=== PATIENT | male | born 1950 | race Caucasian/White ===

== ENCOUNTER 2017-10-27 00:01 | Day surgery (SDC) | payer MEDICARE ==
[~2017-10-27] VITALS: Ht 172.7 cm; Wt 78.0 kg
[~2017-10-27 00:01] MED LIST: AMLO-99 PO; CHOL500016 PO; ENAL20TA99 PO; FERR-53 PO; GOLYTE PO; HYDR12.561 PO; MAXALT PO; METF-411 PO; OMEP-137 PO; OMEP-153 PO; SIME125T3 PO; TADA5TAB7 PO
[2017-10-27] MEDS: NORMOSOL R SOLN(*) 1000 ML BAG 1,000 ML IV PRN ×2 (06:04→09:02)
[2017-10-27] MEDS ORDERED: GLYCOPYRROLATE 0.2MG/ML 1 ML INJ IVP ONE (06:25)
[2017-10-27 06:27] VITALS: BP 140/90
[2017-10-27] MEDS ORDERED: LIDOCAINE/SOD BICARB 8.4% SYR ID ONE (06:30)
[2017-10-27] MEDS ORDERED: LIDOCAINE MPF 1% 5 ML VIAL ONE (07:13)
[2017-10-27] MEDS ORDERED: PROPOFOL EMUL(*) 10MG/ML 20 ML 60 ML ONE (07:13)
[2017-10-27] MEDS ORDERED: PROPOFOL EMUL(*) 10MG/ML 20 ML 20 ML ONE (08:02)
[2017-10-27 08:06] VITALS: BP 107/68
[2017-10-27] MEDS ORDERED: PANT40TA65 PO (08:16)
[2017-10-27 08:19] VITALS: BP 110/73
--- NOTE | 2017-10-27 08:20 | Short(Outpt) Discharge Summary ---
Discharge Summary Reason for Hosp/Final Diag: (1) Anemia Status: Chronic Hospital Course & Plan: EGD with biopsies and colonoscopy completed without problems. Departure Discharge to: Home, Self Care Discharge Instructions Home Meds Active Scripts Pantoprazole Sodium (PANTOPRAZOLE SODIUM) 40 Mg Tablet.dr, 1 TAB PO DAILY, #60 TAB 3 Refills Take 1 tablet first thing every morning before eating and don't eat for 30 minutes after taking. Prov:RANJANA ZHU MD 10/27/17 Peg/Electrolytes (GOLYTELY SOLUTION) 4,000 Ml Soln, 1 GAL PO ONCE, #1 GAL 0 Refills Prov:RANJANA ZHU MD 10/12/17 Reported Medications Tadalafil (CIALIS) 5 Mg Tablet, 5 MG PO QDAY 10/15/17 Hydrochlorothiazide (HYDROCHLOROTHIAZIDE) 12.5 Mg Tablet, 1 TAB PO QDAY, TAB 10/15/17 Metformin Hcl (METFORMIN HCL) 500 Mg Tablet, 1 TAB PO BID, TAB 10/15/17 Omeprazole (OMEPRAZOLE) 20 Mg Tablet.dr, 20 MG PO BID, TAB 10/15/17 Amlodipine Besylate (AMLODIPINE BESYLATE) 10 Mg Tablet, 1 TAB PO QDAY, TAB 10/15/17 Simethicone (SIMETHICONE) 125 Mg Tab.chew, 125 MG PO QDAY, TAB.CHEW 10/15/17 Cholecalciferol (Vitamin D3) (VITAMIN D3) 5,000 Unit Capsule, 5000 UNIT PO QDAY , CAPSULE 10/15/17 Ferrous Sulfate (FERROUS SULFATE) 325 Mg Tablet, 325 MG PO QDAY 10/15/17 Follow up Referrals: General Surgery - 11/16/17 @ Surgery, General with Ranjana Zhu Md You have a follow up appointment scheduled with Dr. Zhu on 11/16/17, at 11: 30am. Diet: Regular Activity: As Tolerated Special Instructions: Your EGD and colonoscopy was completed without any problems and your prep was excellent (Good Job!!). I small 2 small ulcers in your small intestine just outside of your stomach. Your colon was completely normal. I have provided a prescription for pantoprazole which will help the ulcers to heal. I recommend avoiding NSAIDS (nonsteroidal antiinflamatory medications including ibuprofen, motrin, aleve, advil, aspirin, naprosyn, or naproxen; tylenol/acetaminophen is OK) as these can cause ulcers or make them worse. I will see you back in my office on 11/16/17 an we'll discuss all these results and see what else needs to be done. Problem Qualifiers (1) Anemia: Anemia type: iron deficiency Iron deficiency anemia type: chronic blood loss Qualified Codes: D50.0 - Iron deficiency anemia secondary to blood loss ( chronic) RANJANA ZHU MD October 27, 2017 08:20
[2017-10-27 08:48] VITALS: BP 117/80
[2017-10-27 08:49] VITALS: BP 117/82
== END 2017-10-27 09:30 | disposition home or self-care (01) ==
LOC: OR 00:01
PROVIDERS: ATTEND Surgery
DX: D64.9 Anemia, unspecified (principal); K26.7 Chronic duodenal ulcer without hemorrhage or perforation; E11.9 Type 2 diabetes mellitus without complications
CPT/HCPCS: 00811; 36416; 43239; 45378; 82948; 87077; 88305; 88344; J2001; J2704; J3490

== ENCOUNTER 2018-04-26 13:23 | Inpatient (IN) | payer MEDICARE ==
[~2018-04-26] VITALS: Ht 172.7 cm; Wt 80.7 kg
[~2018-04-26 13:23] MED LIST changes: +AMLO-113 PO; -AMLO-99 PO; -METF-411 PO; +METF-450 PO; +PANT40TA65 PO
--- NOTE | 2018-04-26 13:25 | ER Report ---
History and Physical Time Seen By MD: 13:25 HPI/ROS CHIEF COMPLAINT: Nausea and vomiting HISTORY OF PRESENT ILLNESS: This is a 67-year-old male who presents to the emergency department for nausea and vomiting. Patient states that last night nicholas und 9:00 he woke up with some abdominal discomfort and developed some nausea and vomiting. Patient states he's been vomiting all night, and today as well. Patient did have an appointment with his primary care provider today was seen around 10:00, they thought that it was gastroenteritis, the patient continued to have nausea vomiting and has had ongoing diarrhea for at least a month that is being evaluated by Dr. Norman. Patient states that he decided to come in because the abdominal cramping, nausea and vomiting became too intense. No blood noted in the emesis or diarrhea. Patient does state that when he has his episodes of vomiting he does have some increased shortness of breath. However he declines chest pain. No fevers or chills. No headaches or dizziness. No rashes. No other complaints. REVIEW OF SYSTEMS: Constitutional: No fever, no chills. Eyes: No discharge. ENT: No sore throat. Cardiovascular: No chest pain, no palpitations. Respiratory: As above. Gastrointestinal: As above. Genitourinary: No hematuria. Musculoskeletal: No back pain. Skin: No rashes. Neurological: No headache. Allergies: Coded Allergies: No Known Allergies (Verified Allergy, Mild, 02/14/08) Home Meds Reported Medications Tadalafil (CIALIS) 5 Mg Tablet, 5 MG PO QDAY 10/15/17 Hydrochlorothiazide (HYDROCHLOROTHIAZIDE) 12.5 Mg Tablet, 1 TAB PO QDAY, TAB 10/15/17 Metformin Hcl (METFORMIN HCL) 500 Mg Tablet, 1 TAB PO BID, TAB 10/15/17 Omeprazole (OMEPRAZOLE) 20 Mg Tablet.dr, 20 MG PO BID, TAB 10/15/17 Amlodipine Besylate (AMLODIPINE BESYLATE) 10 Mg Tablet, 1 TAB PO QDAY, TAB 10/15/17 Cholecalciferol (Vitamin D3) (VITAMIN D3) 5,000 Unit Capsule, 5000 UNIT PO QDAY, CAPSULE 10/15/17 Ferrous Sulfate (FERROUS SULFATE) 325 Mg Tablet, 325 MG PO QDAY 10/15/17 Discontinued Reported Medications Simethicone (SIMETHICONE) 125 Mg Tab.chew, 125 MG PO QDAY, TAB.CHEW 10/15/17 Discontinued Scripts Pantoprazole Sodium (PANTOPRAZOLE SODIUM) 40 Mg Tablet.dr, 1 TAB PO DAILY, #60 TAB 3 Refills Take 1 tablet first thing every morning before eating and don't eat for 30 minutes after taking. Prov:RANJANA ZHU MD 10/27/17 Hx Smoking: Yes (PIPE RARELY) Smoking Status: Never Smoker Hx Alcohol Use: Yes Constitutional Vital Sign - Last 24 Hours 04/26/18 04/26/18 04/26/18 04/26/18 13:34 13:34 13:38 13:53 Pulse 110 114 105 Resp 20 8 8 B/P (MAP) 149/100 (116) 149/100 Pulse Ox 97 97 94 04/26/18 04/26/18 04/26/18 04/26/18 14:00 14:08 14:23 14:25 Pulse 102 ??? Resp 12 B/P (MAP) 140/97 (111) Pulse Ox 88 O2 Flow Rate 2.0 04/26/18 04/26/18 04/26/18 04/26/18 14:30 14:38 14:53 15:00 Pulse 99 91 Resp 18 7 B/P (MAP) 140/97 (111) 140/90 (107) Pulse Ox 87 99 04/26/18 04/26/18 04/26/18 04/26/18 15:08 15:13 15:37 15:42 Pulse 97 95 101 Resp 12 17 B/P (MAP) 142/90 (107) Pulse Ox 91 04/26/18 04/26/18 04/26/18 04/26/18 15:57 16:00 16:12 16:27 Pulse 98 96 100 B/P (MAP) 132/89 (103) Pulse Ox 95 95 95 O2 Delivery Nasal Cannula O2 Flow Rate 2 Physical Exam General Appearance: The patient is alert, has no immediate need for airway protection and no signs of toxicity. Eyes: Pupils equal and round no pallor or injection. ENT, Mouth: Mucous membranes are moist. Respiratory: There are no retractions, lungs are clear to auscultation. Cardiovascular: Regular rate and rhythm, no murmurs, clicks or rubs. Gastrointestinal: Abdomen is round, soft and non tender, no masses, hypoactive and distant bowel sounds. Neurological: Alert and oriented 4. Moving all extremities. Following all commands. No focal neuro deficits. Skin: Warm and dry, no rashes. Musculoskeletal: Neck is supple non tender. Extremities are nontender, nonswollen and have full range of motion. DIFFERENTIAL DIAGNOSIS: After history and physical exam differential diagnosis was considered for abdominal pain including but not limited to appendicitis, bowel obstruction, cholecystitis, gastritis and urinary tract infection. Medical Decision Making Data Points Result Diagram: 04/26/18 1346 04/26/18 1346 Laboratory Hematology Test 04/26/18 13:46 Red Blood Count 5.74 M/uL (4.00-5.60) Mean Corpuscular Volume 87.7 fL (80.0-96.0) Mean Corpuscular Hemoglobin 30.6 pg (26.0-33.0) Mean Corpuscular Hemoglobin Concent 34.9 g/dL (32.0-36.0) Red Cell Distribution Width 14.0 % (11.5-14.5) Mean Platelet Volume 6.9 fL (7.2-11.1) Neutrophils (%) (Auto) 83.5 % (39.4-72.5) Lymphocytes (%) (Auto) 7.4 % (17.6-49.6) Monocytes (%) (Auto) 8.3 % (4.1-12.4) Eosinophils (%) (Auto) 0.2 % (0.4-6.7) Basophils (%) (Auto) 0.6 % (0.3-1.4) Nucleated RBC Relative Count (auto) 0.0 /100WBC Neutrophils # (Auto) 8.5 K/uL (2.0-7.4) Lymphocytes # (Auto) 0.7 K/uL (1.3-3.6) Monocytes # (Auto) 0.8 K/uL (0.3-1.0) Eosinophils # (Auto) 0.0 K/uL (0.0-0.5) Basophils # (Auto) 0.1 K/uL (0.0-0.1) Nucleated RBC Absolute Count (auto) 0.00 K/uL Erythrocyte Sedimentation Rate 11 mm/HOUR (0-20) Absolute Reticulocyte Count 0.1058 10^6/uL Percent Reticulocyte Count 1.83 % Corrected Reticulocyte % 2.21 % Sodium Level 139 mmol/L (137-145) Potassium Level 3.8 mmol/L (3.5-5.0) Chloride Level 103 mmol/L (98-107) Carbon Dioxide Level 24 mmol/L (22-30) Blood Urea Nitrogen 16 mg/dl (9-21) Creatinine 0.90 mg/dl (0.66-1.25) Glomerular Filtration Rate Calc > 60.0 Random Glucose 136 mg/dl (75-110) Calcium Level 9.8 mg/dl (8.4-10.2) Iron Level 51 ug/dl (49-181) Total Iron Binding Capacity 402 ug/dl (261-497) Percent Iron Saturation 12.7 % Total Bilirubin 1.0 mg/dl (0.2-1.3) Aspartate Amino Transf (AST/SGOT) 24 U/L (0-35) Alanine Aminotransferase (ALT/SGPT) 33 U/L (0-56) Alkaline Phosphatase 107 U/L (0-126) Lactate Dehydrogenase 508 U/L (0-674) Troponin I < 0.012 ng/ml C-Reactive Protein 3.0 mg/dl (<1.0) Total Protein 7.7 g/dl (6.3-8.2) Albumin 4.3 g/dl (3.5-5.0) Lipase 70 U/L (23-300) Chemistry Test 04/26/18 13:46 White Blood Count 10.1 k/uL (4.5-11.0) Red Blood Count 5.74 M/uL (4.00-5.60) Hemoglobin 17.6 g/dL (14.0-18.0) Hematocrit 50.8 % (42.0-52.0) Mean Corpuscular Volume 87.7 fL (80.0-96.0) Mean Corpuscular Hemoglobin 30.6 pg (26.0-33.0) Mean Corpuscular Hemoglobin Concent 34.9 g/dL (32.0-36.0) Red Cell Distribution Width 14.0 % (11.5-14.5) Platelet Count 314 K/uL (150-450) Mean Platelet Volume 6.9 fL (7.2-11.1) Neutrophils (%) (Auto) 83.5 % (39.4-72.5) Lymphocytes (%) (Auto) 7.4 % (17.6-49.6) Monocytes (%) (Auto) 8.3 % (4.1-12.4) Eosinophils (%) (Auto) 0.2 % (0.4-6.7) Basophils (%) (Auto) 0.6 % (0.3-1.4) Nucleated RBC Relative Count (auto) 0.0 /100WBC Neutrophils # (Auto) 8.5 K/uL (2.0-7.4) Lymphocytes # (Auto) 0.7 K/uL (1.3-3.6) Monocytes # (Auto) 0.8 K/uL (0.3-1.0) Eosinophils # (Auto) 0.0 K/uL (0.0-0.5) Basophils # (Auto) 0.1 K/uL (0.0-0.1) Nucleated RBC Absolute Count (auto) 0.00 K/uL Erythrocyte Sedimentation Rate 11 mm/HOUR (0-20) Absolute Reticulocyte Count 0.1058 10^6/uL Percent Reticulocyte Count 1.83 % Corrected Reticulocyte % 2.21 % Glomerular Filtration Rate Calc > 60.0 Calcium Level 9.8 mg/dl (8.4-10.2) Iron Level 51 ug/dl (49-181) Total Iron Binding Capacity 402 ug/dl (261-497) Percent Iron Saturation 12.7 % Total Bilirubin 1.0 mg/dl (0.2-1.3) Aspartate Amino Transf (AST/SGOT) 24 U/L (0-35) Alanine Aminotransferase (ALT/SGPT) 33 U/L (0-56) Alkaline Phosphatase 107 U/L (0-126) Lactate Dehydrogenase 508 U/L (0-674) Troponin I < 0.012 ng/ml C-Reactive Protein 3.0 mg/dl (<1.0) Total Protein 7.7 g/dl (6.3-8.2) Albumin 4.3 g/dl (3.5-5.0) Lipase 70 U/L (23-300) EKG/Imaging EKG Interpretation 12 lead EKG: Time of EKG 1358. Rhythm: Sinus tachycardia, ventricular rate 101 bpm. [place]: normal QRS: Incomplete right bundle branch block. ST segments: No ST depression or elevation identified. No Previous EKGs for comparison. Imaging TECHNIQUE: CT abdomen and pelvis with intravenous contrast. Contiguous axial images of the abdomen and pelvis was performed from the lung bases to the symphysis pubis. One of the following dose optimization techniques was utilized in the performance of this exam: Automated exposure control; adjustment of the mA and/or kV according to the patient's size; or use of an iterative reconstruction technique. Specific details can be referenced in the facility's radiology CT exam operational policy. CONTRAST: 75 cc of Isovue-370 COMPARISON: None. FINDINGS: Visualized lung bases: Negative. Hepatobiliary: There is fatty infiltration of the liver. 4 mm hypodensity segment 4A is likely a benign cyst. Small gallstone is noted in the gallbladder. Spleen: Negative. Adrenals: Negative. Kidneys/: Negative. Pancreas: Negative. GI: There is a small bowel obstruction with small bowel loops dilated and fluid-filled measuring up to 3.8 cm. Transition point appears to be in the terminal ileum with some skip areas of focal narrowing enhancement concerning for possible Crohn's disease. Malignancy is not excluded but felt to be unlikely. There is a small amount of free fluid. Subtly prominent mesenteric lymph nodes are likely reactive. Appendix is normal. Remainder of the colon is unremarkable. No evidence for perianal disease. Vessels/spaces/nodes: Atherosclerotic calcifications noted. Iliac vessels are ectatic. Bones/soft tissues: Degenerative changes are noted the spine. IMPRESSION: 1. Distal small bowel obstruction at the level the terminal ileum. There are skip areas of small bowel narrowing, thickening and enhancement of the terminal ileum concerning for possible Crohn's disease. Malignancy is felt to be unlikely and the pattern is atypical for adhesions. Small amount of free fluid is noted but no gross free air. Report Dictated By: Joo Ferrera MD at 04/26/2018 3:45 PM Report E-Signed By: Joo Ferrera MD at 04/26/2018 3:58 PM [id number] Exam type: ACUTE ABDOMEN SERIES 3 VIEW History: abd pain, n/v/d Comparison: None. Findings: Supine and upright views of the abdomen demonstrate air-fluid levels in multiple loops of mildly prominent small bowel throughout the abdomen. The colon does not appear dilated. Findings are concerning for small bowel obstruction. No free air seen beneath hemidiaphragms. No gross evidence of organomegaly. PA of the chest reveals no evidence of acute pulmonary consolidation or pleural effusions. The cardiac silhouette is normal in size. This mild ectasia the thoracic aorta. IMPRESSION: 1. Findings are suspicious for small bowel obstruction Report Dictated By: Cailin Mitchell MD at 04/26/2018 2:43 PM Report E-Signed By: Cailin Mitchell MD at 04/26/2018 2:45 PM WSN:[email or web address] ED Course/Re-evaluation Clinical Indication for ER IV: Hydration, IV Access ED Course The patient was admitted to room. A history and physical were obtained. Differential diagnoses were considered. IV was started. A CBC, CMP, troponin were obtained. A 1 L normal saline bolus was given, 4 mg IV Zofran. EKG showing sinus rhythm with a incomplete right bundle branch block. A three-view abdominal x-ray concerning for a bowel obstruction. I did review the results with the patient, did recommend a CT, patient was in agreement. A CT of the abdomen and pelvis showing a small bowel obstruction near the terminal ileum. The patient's laboratory studies unremarkable, negative troponin, negative urine. I did speak with Dr. Zhu, the surgeon on-call, he's accepted the patient into his services, patient will be admitted to the medical floor. No NG tube at this time. 04/26/2018 4:17:37 pm I did speak with Dr. Zhu, the surgeon combination welder apprentice, he's accepted the patient into his services, patient will be admitted to medical floor, no NG tube at this time. Decision to Disposition Date: Apr 26, 2018 Decision to Disposition Time: 16:17 Depart Departure Latest Vital Signs Vital Signs Date Time Temp Pulse Resp B/P (MAP) Pulse Ox O2 Delivery O2 Flow Rate FiO2 04/26/18 16:27 100 95 Nasal Cannula 2 04/26/18 16:00 132/89 (103) 04/26/18 15:13 17 Impression: Primary Impression: SBO (small bowel obstruction) Condition: Improved Disposition: Admitted from ER Referrals: ENRIQUE PATEL PA-C (PCP) JOSE ANGEL HUI COMMUNICATIONS DESIGNER-BC Apr 26, 2018 13:25
[2018-04-26] MEDS ORDERED: NS(*) 0.9% 1000 ML BAG 1,000 ML IV ONE (13:53)
[2018-04-26] MEDS ORDERED: ONDANSETRON 4 MG/2 ML VIAL IVP ONE (13:55)
[2018-04-26 13:59] LABS: PLATELET COUNT, AUTOMATED 314 K/uL (150-450)
--- NOTE | 2018-04-26 14:03 | EKG ---
FACILITY: [facility] - [place] PATIENT NAME: SHAINA NI : [id number] MR: [id number] V: [id number] EXAM DATE: ORDERING PHYSICIAN: JOSE ANGEL HUI TECHNOLOGIST: IRENE Marquez Reason : SOB Blood Pressure : / mmHG Vent. Rate : 101 BPM Atrial Rate : 101 BPM P-R Int : 152 ms QRS Dur : 100 ms QT Int : 356 ms P-R-T Axes : 042 -60 050 degrees QTc Int : [address] elevation in inferior leads consistent with myocardial injury R wave progression consistent with old ant/sep VT No previous ECGs available Confirmed by PRIYANKA SHARMA ([id number]) on 04/26/2018 6:13:19 PM Referred By: Confirmed By:PRIYANKA SHARMA
--- NOTE | 2018-04-26 14:48 | RADIOLOGY IMAGING REPORT ---
FACILITY: [facility] PATIENT NAME: Adrian Morales : 1950 MR: [id number] V: [id number] EXAM DATE: ORDERING PHYSICIAN: JOSE ANGEL HUI TECHNOLOGIST: Location: [facility] - [place] Patient: Adrian Morales : 1950 Visit/Account:[id number] Date of Sevice: 04/26/2018 Exam type: ACUTE ABDOMEN SERIES 3 VIEW History: abd pain, n/v/d Comparison: None. Findings: Supine and upright views of the abdomen demonstrate air-fluid levels in multiple loops of mildly prom inent small bowel throughout the abdomen. The colon does not appear dilated. Findings are concernin g for small bowel obstruction. No free air seen beneath hemidiaphragms. No gross evidence of organo megaly. PA of the chest reveals no evidence of acute pulmonary consolidation or pleural effusions. The cardi ac silhouette is normal in size. This mild ectasia the thoracic aorta. IMPRESSION: 1. Findings are suspicious for small bowel obstruction Report Dictated By: Cailin Mitchell MD at 04/26/2018 2:43 PM Report E-Signed By: Cailin Mitchell MD at 04/26/2018 2:45 PM WSN:[email or web address]
[2018-04-26] MEDS ORDERED: IOPAMIDOL 76% 75 ML INFUS BTL 75 ML ONE (15:24)
--- NOTE | 2018-04-26 16:02 | RADIOLOGY IMAGING REPORT ---
FACILITY: [facility] - [place] PATIENT NAME: Adrian Morales : 1950 MR: [id number] V: [id number] EXAM DATE: ORDERING PHYSICIAN: JOSE ANGEL HUI TECHNOLOGIST: Location: [facility] [place] Patient: Adrian Morales : 1950 Visit/Account:[id number] Date of Sevice: 04/26/2018 ABDOMEN/PELVIS WITH CONTRAST HISTORY:n/v, eval for SBO TECHNIQUE: CT abdomen and pelvis with intravenous contrast. Contiguous axial images of the abdomen and pelvis was performed from the lung bases to the symphysis pubis. One of the following dose optimization techniques was utilized in the performance of this exam: Autom ated exposure control; adjustment of the mA and/or kV according to the patient's size; or use of an i terative reconstruction technique. Specific details can be referenced in the facility's radiology C T exam operational policy. CONTRAST: 75 cc of Isovue-370 COMPARISON: None. FINDINGS: Visualized lung bases: Negative. Hepatobiliary: There is fatty infiltration of the liver. 4 mm hypodensity segment 4A is likely a be nign cyst. Small gallstone is noted in the gallbladder. Spleen: Negative. Adrenals: Negative. Kidneys/: Negative. Pancreas: Negative. GI: There is a small bowel obstruction with small bowel loops dilated and fluid-filled measuring up to 3.8 cm. Transition point appears to be in the terminal ileum with some skip areas of focal narrow ing enhancement concerning for possible Crohn's disease. Malignancy is not excluded but felt to be u nlikely. There is a small amount of free fluid. Subtly prominent mesenteric lymph nodes are likely reactive. Appendix is normal. Remainder of the colon is unremarkable. No evidence for perianal disease. Vessels/spaces/nodes: Atherosclerotic calcifications noted. Iliac vessels are ectatic. Bones/soft tissues: Degenerative changes are noted the spine. IMPRESSION: 1. Distal small bowel obstruction at the level the terminal ileum. There are skip areas of small diallo wel narrowing, thickening and enhancement of the terminal ileum concerning for possible Crohn's disea se. Malignancy is felt to be unlikely and the pattern is atypical for adhesions. Small amount of fr ee fluid is noted but no gross free air. Report Dictated By: Joo Ferrera MD at 04/26/2018 3:45 PM Report E-Signed By: Joo Ferrera MD at 04/26/2018 3:58 PM [id number]
[2018-04-26] MEDS ORDERED: FLUSH 10 ML SYR IVP PRN (16:20)
[2018-04-26] MEDS ORDERED: INSULIN HUM LISPRO 100 UN/ML 3 ML VIAL SUBQ PRN (16:20)
[2018-04-26] MEDS ORDERED: MORPHINE 2 MG/ML SYR IVP PRN (16:20)
[2018-04-26] MEDS ORDERED: ONDANSETRON 4 MG/2 ML VIAL IVP PRN (16:20)
[2018-04-26 17:21] VITALS: BP 147/96
[2018-04-26] MEDS: HYDROCORTISONE 100 MG/2 ML IVP SCH (17:22)
--- NOTE | 2018-04-26 19:39 | Gen Surgery History & Physical ---
History of Present Illness Chief Complaint N/V History of Present Illness 67yo male, known to me as I have been evaluating him for chronic abdominal cramps and diarrhea. EGD revealed some superficial duodenal ulcers and his colonoscopy was normal. I saw him in f/u last week and we discussed trying a trial of a gluten free diet for 30 days. Yesterday, he was eating dinner and shortly afterward started feeling poorly with N/V. His symptoms have worsened today prompting him to come in to the [facility] ER where a CT abdomen/pelvis reveals an SBO due to enteritis with skip lesions suspicious for Crohn's. I was asked to evaluate and treat this patient. He has never before been diagnosed with IBD, no previous h/o SBOs, no previous abdominal surgery. He has continued to pass flatus and liquid stool although he did take an immodium yesterday and had a "normal" formed BM this morning. No blood in his stool. Right now, at the time of my examination, he is asymptomatic without any abdominal pain or bloating and no N/V. History Problems: (1) Hypertension Status: Chronic (2) GERD (gastroesophageal reflux disease) Status: Chronic (3) Diabetes type 2, controlled Status: Chronic Home Meds Reported Medications Tadalafil (CIALIS) 5 Mg Tablet, 5 MG PO QDAY 10/15/17 Hydrochlorothiazide (HYDROCHLOROTHIAZIDE) 12.5 Mg Tablet, 1 TAB PO QDAY, TAB 10/15/17 Metformin Hcl (METFORMIN HCL) 500 Mg Tablet, 1 TAB PO BID, TAB 10/15/17 Omeprazole (OMEPRAZOLE) 20 Mg Tablet.dr, 20 MG PO BID, TAB 10/15/17 Amlodipine Besylate (AMLODIPINE BESYLATE) 10 Mg Tablet, 1 TAB PO QDAY, TAB 10/15/17 Cholecalciferol (Vitamin D3) (VITAMIN D3) 5,000 Unit Capsule, 5000 UNIT PO QDAY, CAPSULE 10/15/17 Ferrous Sulfate (FERROUS SULFATE) 325 Mg Tablet, 325 MG PO QDAY 10/15/17 Discontinued Reported Medications Simethicone (SIMETHICONE) 125 Mg Tab.chew, 125 MG PO QDAY, TAB.CHEW 10/15/17 Discontinued Scripts Pantoprazole Sodium (PANTOPRAZOLE SODIUM) 40 Mg Tablet.dr, 1 TAB PO DAILY, #60 TAB 3 Refills Take 1 tablet first thing every morning before eating and don't eat for 30 minutes after taking. Prov:RANJANA ZHU MD 10/27/17 Allergies: Coded Allergies: No Known Allergies (Verified Allergy, Mild, 02/14/08) Review of Systems All Systems Reviewed/Normal: Yes, Except as Noted Gastrointestinal: Nausea, Vomiting, Diarrhea, Abdominal Pain Exam General Appearance: Alert, Awake, No Acute Distress, Afebrile Neuro: No Gross deficits Eyes: PERRLA GI: Abd Soft and Non-Tender Extremities: Warm, Perfused Psych: Alert & Oriented X3, Appropriate Mood & Affect Medical Decision Making Data Points Result Diagram: 04/26/18 1346 04/26/18 1346 Assessment and Plan Problems: (1) SBO (small bowel obstruction) Status: Acute Assessment & Plan: 04/26/18: Admit, bowel rest/NPO, IV fluids. Will send stool for infectious disease w/u given enteritis and diarrhea. Will start IV steroids for suspected Crohn's based on enteritis with skip lesions. I have explained the CT findings with the patient as well as the suspected diagnoses and recommended treatment. He indicates his understanding of this discussion and his questions have been answered. Pt is agreeable with proceeding with this plan. (2) Enteritis Status: Acute Condition Stable. Time Spent: < 30 min Venous Thromboembolism VTE Risk Physician Assess for VTE Risk: Yes Patient's VTE Risk: Low VTE Diagnostic Test 2 Days Prior to Admit: No Antithrombotics Is Pt On Any Antithrombotics?: No RANJANA ZHU MD Apr 26, 2018 19:39
[2018-04-26 19:50] VITALS: BP 103/88
[2018-04-27 00:10] VITALS: BP 136/86
[2018-04-27] MEDS: HYDROCORTISONE 100 MG/2 ML IVP SCH ×3 (00:43→16:52)
[2018-04-27] MEDS: NS(*) 0.9% 1000 ML BAG 1,000 ML IV PRN ×3 (00:44→18:23)
[2018-04-27 05:30] VITALS: BP 132/80
[2018-04-27 06:12] LABS: PLATELET COUNT, AUTOMATED 252 K/uL (150-450)
--- NOTE | 2018-04-27 06:17 | RADIOLOGY IMAGING REPORT ---
FACILITY: [facility] - [place] PATIENT NAME: Adrian Morales : 1950 MR: [id number] V: [id number] EXAM DATE: ORDERING PHYSICIAN: RANJANA ZHU TECHNOLOGIST: Location: [facility] Patient: Adrian Morales : 1950 Visit/Account:[id number] Date of Sevice: 04/27/2018 KUB SINGLE VIEW ABDOMEN HISTORY: Small bowel obstruction. COMPARISON: CT abdomen and pelvis dated 04/26/2018. FINDINGS: Lines/tubes: None. Bowel gas pattern: Dilated small bowel loops in the right side of the abdomen measuring up to 3.9 cm . This is probably not significantly changed compared with the recent CT scan. Soft tissues: Contrast in the bladder from recent CT scan. Bony structures: Negative. Visualized lung bases: Negative. IMPRESSION: Dilated small bowel loops in the right side of the abdomen measuring up to 3.9 cm. This i s probably not significantly changed compared with the recent CT scan. Report Dictated By: Johnny Cortez MD at 04/27/2018 6:09 AM Report E-Signed By: Johnny Cortez MD at 04/27/2018 6:14 AM [id number]
--- NOTE | 2018-04-27 06:43 | General Surgery Progress Note ---
Subjective Progress Notes Subjective Feeling much better today. No N/V, no abdominal pain. No flatus but had a BM this morning. Physical Exam Vital Signs Date Time Temp Pulse Resp B/P (MAP) Pulse Ox O2 Delivery O2 Flow Rate FiO2 04/27/18 05:30 97.8 83 16 132/80 (97) 92 Room Air 04/27/18 00:10 1.0 Intake and Output 04/27/18 07:00 Intake Total 1000 ml Balance 1000 ml Intake IV Total 1000 ml # Voids 2 # Bowel Movements 1 General Appearance: Alert, Awake, No Acute Distress, Afebrile GI: Soft and Non-Tender (Much softer than yesterday.) Extremities: Warm, Perfused Result Diagram: 04/27/1852 04/27/1852 Assessment and Plan Problems: (1) SBO (small bowel obstruction) Status: Acute Assessment & Plan: 04/26/18: Admit, bowel rest/NPO, IV fluids. Will send stool for infectious disease w/u given enteritis and diarrhea. Will start IV steroids for suspected Crohn's based on enteritis with skip lesions. I have explained the CT findings with the patient as well as the suspected diagnoses and recommended treatment. He indicates his understanding of this discussion and his questions have been answered. Pt is agreeable with proceeding with this plan. 04/27/18: Doing well. No flatus yet and KUB with SBO. Continue IV steroids. Will start sips/chips today. Continue IV fluids. (2) Enteritis Status: Acute Condition Stable. Time Spent: < 30 min Exam Sepsis Risk: No Definite Risk RANJANA ZHU MD Apr 27, 2018 06:43
[2018-04-27 06:48] VITALS: BP 128/82
[2018-04-27] MEDS: amLODIPine BESYL(*) 5 MG TAB PO SCH (08:47)
[2018-04-27] MEDS: HYDROCHLOROTHIAZIDE 25 MG TAB PO SCH (08:47)
[2018-04-27] MEDS: PANTOPRAZOLE SOD 40 MG IV VIAL IVP SCH (08:48)
[2018-04-27] MEDS: ENOXAPARIN 40 MG/0.4ML SYR SC SCH (08:50)
[2018-04-27 11:28] VITALS: BP 133/85
--- NOTE | 2018-04-27 12:50 | Medical Nutrition Therapy ---
Nutrition Anthropometrics Height (Inches): 68 Weight (Pounds): 178 Weight (Calculated Kilograms): 80.739 BMI: 27.1 Vasiliy Nutrition Score: Adequate Vasiliy Nutrition Risk Score: 19 Dietary Referral Nutrition Risk Factors: Nutrition Risk Comment: Physical Findings Physical Appearance: Overweight BMI 25-29 Skin Appearance Skin Appearance: Edema Edema Location Modifier: Edema Location: Type of Edema: Degree of Edema: Gastrointestinal Symptoms GI Symtoms: Appetite Changes, Change in Bowel Pattern Tube Present: Bowel Sounds: Recent Bowel Pattern: Stool Characteristics: Nutritional Diagnosis Nutritional Risk Acuity 1: GI Obstruction Past Medical History: Hx of HTN, GERD, T2DM Nutritional Acuity: 1-High Nutrition Diagnosis: Altered GI Function Nutrition Etiology: Physiological Causes Nutrition Problem/Etiology/Sym: Altered GI funtion r/t physiological causes AEB distended stomach, no flatus. Energy Requirement: 2030 (M-SJ * 1.3) Protein Requirement: 80 (1g/kg) Fluid Requirement: 2030 (1ml/kg) Diet Type: NPO/Ice Chips Only Nutrition Intervention: Incr diet as tolerated, Check glucose, Obtain Height and Weight Drug: Diuretics Nutrition Monitoring & Eval Nutrition Goals: Eat 75-100% Meal, Drink > 1500 cc/day RD Patient Assessment Time: [address] Assessment Type: RD Assessment Patient Nutrition Acuity: 1-High Follow Up Date: Apr 29, 2018 Nutritional Comment: 04/27 Pt admitted for SBO. Pt NPO/Ice chips only. Hx of HTN, GERD, T2DM. Pt has distended stomach, but denies any n/v, abd pain. Pt has no flatus, but did have BM this am. C-Reactive protein elevated at 3.6. TB CHATO LOZOYA Apr 27, 2018 08:06
[2018-04-27 15:19] VITALS: BP 126/74
[2018-04-27] MEDS ORDERED: NS(*) 0.9% 1000 ML BAG 1,000 ML IV PRN (19:39)
[2018-04-27 20:01] VITALS: BP 135/83
[2018-04-28 00:39] VITALS: BP 121/79
[2018-04-28] MEDS: HYDROCORTISONE 100 MG/2 ML IVP SCH ×3 (00:42→18:23)
[2018-04-28 03:06] VITALS: BP 128/79
[2018-04-28 05:59] LABS: PLATELET COUNT, AUTOMATED 246 K/uL (150-450)
--- NOTE | 2018-04-28 06:25 | RADIOLOGY IMAGING REPORT ---
[place] [facility] [place] Adrian Morales : 1950 MR: [id number] V: [id number] EXAM DATE: ORDERING PHYSICIAN: RANJANA ZHU TECHNOLOGIST: Location: [facility] [place] Patient: Adrian Morales : 1950 Visit/Account:[id number] Date of Sevice: 04/28/2018 KUB SINGLE VIEW ABDOMEN HISTORY: Small bowel obstruction. Follow-up. COMPARISON: 04/27/2018 and 04/26/2018. FINDINGS: A single AP supine view of the abdomen was obtained. Distribution of bowel gas is normal with bowel in all four quadrants as well as centrally. There are dilated small bowel loops in the lower abdomen, right greater than left. No significant change from p rior study. No free air. There is mild degenerative change of the spine. There is mild right hemidiaphragm elevation. IMPRESSION: 1. Persistent small bowel obstruction without significant interval change. Report Dictated By: Tawana Fernandez at 04/28/2018 6:19 AM Report E-Signed By: Tawana Fernandez at 04/28/2018 6:20 AM WSN:[id number]
[2018-04-28 07:34] VITALS: BP 128/79
[2018-04-28 08:21] VITALS: BP 132/79
--- NOTE | 2018-04-28 08:37 | General Surgery Progress Note ---
Subjective Progress Notes Subjective No complaints this morning. No pain. Passing flatus. No BM since yesterday. No N/V, doesn't feel bloated. Physical Exam Vital Signs Date Time Temp Pulse Resp B/P (MAP) Pulse Ox O2 Delivery O2 Flow Rate FiO2 04/28/18 08:21 98.1 71 16 132/79 (96) 92 Room Air 04/27/18 07:12 1.0 Intake and Output 04/28/18 06:59 Intake Total 3880 ml Balance 3880 ml Intake Oral 940 ml IV Total 2940 ml # Voids 6 General Appearance: Alert, Awake, No Acute Distress, Afebrile GI: Soft and Non-Tender Extremities: Warm, Perfused Result Diagram: 04/28/1852604/28/18526 Assessment and Plan Problems: (1) SBO (small bowel obstruction) Status: Acute Assessment & Plan: 04/26/18: Admit, bowel rest/NPO, IV fluids. Will send stool for infectious disease w/u given enteritis and diarrhea. Will start IV steroids for suspected Crohn's based on enteritis with skip lesions. I have explained the CT findings with the patient as well as the suspected diagnoses and recommended treatment. He indicates his understanding of this discussion and his questions have been answered. Pt is agreeable with proceeding with this plan. 04/27/18: Doing well. No flatus yet and KUB with SBO. Continue IV steroids. Will start sips/chips today. Continue IV fluids. 04/28/18: Doing well this morning. Passing flatus since yesterday evening. KUB still with signs of SBO. CRP down this morning. Continue clear diet and continue IV steroids for now. Will reassess this afternoon and if he continues to progress then will consider regular diet later today. (2) Enteritis Status: Acute Condition STable. Time Spent: < 30 min Exam Sepsis Risk: No Definite Risk RANJANA ZHU MD Apr 28, 2018 08:37
[2018-04-28] MEDS: HYDROCHLOROTHIAZIDE 25 MG TAB PO SCH (09:08)
[2018-04-28] MEDS: amLODIPine BESYL(*) 5 MG TAB PO SCH (09:08)
[2018-04-28] MEDS: PANTOPRAZOLE SOD 40 MG IV VIAL IVP SCH (09:09)
[2018-04-28] MEDS: ENOXAPARIN 40 MG/0.4ML SYR SC SCH (09:09)
[2018-04-28 15:42] VITALS: BP 134/91
[2018-04-28 19:35] VITALS: BP 130/85
[2018-04-29 00:21] VITALS: BP 123/79
[2018-04-29] MEDS: HYDROCORTISONE 100 MG/2 ML IVP SCH ×3 (00:31→17:17)
[2018-04-29 05:51] VITALS: BP 136/90
[2018-04-29 06:01] LABS: PLATELET COUNT, AUTOMATED 236 K/uL (150-450)
--- NOTE | 2018-04-29 08:19 | RADIOLOGY IMAGING REPORT ---
FACILITY: [facility] - [place] PATIENT NAME: Adrian Morales : 1950 MR: [id number] V: [id number] EXAM DATE: ORDERING PHYSICIAN: RANJANA ZHU TECHNOLOGIST: [place] [facility] [place] Patient: Adrian Morales : 1950 Visit/Account:[id number] Date of Sevice: 04/29/2018 Single view of the abdomen Indication: Small bowel obstruction. Comparison: April 28, 2018. Findings: Borderline dilated loops of small bowel, grossly unchanged. There are no pathologic calcifications identified. Calcified phleboliths within the pelvis. IMPRESSION: No significant change since prior exam. Report Dictated By: Parmjit Hannon MD at 04/29/2018 8:13 AM Report E-Signed By: Parmjit Hannon MD at 04/29/2018 8:15 AM WSN:[id number]
[2018-04-29 08:43] VITALS: BP 141/81
[2018-04-29] MEDS ORDERED: POTASSIUM CHL PWDR 20 MEQ PKT PO ONE (09:30)
[2018-04-29] MEDS ORDERED: PRE5 PO (09:53)
[2018-04-29] MEDS ORDERED: PRED20TA6 PO (09:53)
[2018-04-29] MEDS: HYDROCHLOROTHIAZIDE 25 MG TAB PO SCH (11:19)
[2018-04-29] MEDS: amLODIPine BESYL(*) 5 MG TAB PO SCH (11:19)
[2018-04-29] MEDS: PANTOPRAZOLE SOD 40 MG IV VIAL IVP SCH (11:20)
[2018-04-29] MEDS: ENOXAPARIN 40 MG/0.4ML SYR SC SCH (11:20)
--- NOTE | 2018-04-29 14:03 | Medical Nutrition Therapy ---
Nutrition Anthropometrics Height (Inches): 68 Weight (Pounds): 178 Weight (Calculated Kilograms): 80.739 BMI: 27.1 Vasiliy Nutrition Score: Adequate Vasiliy Nutrition Risk Score: 20 Dietary Referral Nutrition Risk Factors: Nutrition Risk Comment: Physical Findings Physical Appearance: Overweight BMI 25-29 Skin Appearance Skin Appearance: Edema Edema Location Modifier: Both Edema Location: Lower Extremity Type of Edema: Degree of Edema: Gastrointestinal Symptoms GI Symtoms: Diarrhea, Change in Bowel Pattern Tube Present: Bowel Sounds: Recent Bowel Pattern: Stool Characteristics: Nutritional Diagnosis Nutritional Risk Acuity 1: GI Obstruction Past Medical History: Hx of HTN, GERD, T2DM Nutritional Acuity: 1-High Nutrition Diagnosis: Altered GI Function Nutrition Etiology: Physiological Causes Nutrition Problem/Etiology/Sym: Altered GI funtion r/t physiological causes AEB distended stomach, no flatus. Energy Requirement: 2030 (M-SJ * 1.3) Protein Requirement: 80 (1g/kg) Fluid Requirement: 2030 (1ml/kg) Diet Type: Clear Liquids Nutrition Intervention: Incr diet as tolerated, Check glucose Drug: Diuretics Nutritional Education Nutrition Education Topic: Diabetic Nutrition, Gluten Free Learning Readiness: Eager, Interested Teaching Methods: Discussion Response to Teaching: Verbalize understanding Teaching Recipient: Patient Nutrition Counselin/23 I met with the patient to talk about how to advance his diet following SBO. We had a long discussion about his regular eating habits. He has a good understanding of how to control his T2DM with diet and exercise. We talked about a gluten free diet, which he has been playing with off and on for the last few weeks. He asked good questions about foods that would be acceptable and has a good understanding. He does like to eat bread and salad so we talked about gluten free versions. He does eat potato chips every once in a while and drinks white wine a few times per week. I gave him some suggestions for slowly advancing his diet. -EK Nutrition Monitoring & Eval RD Patient Assessment Time: [address] Assessment Type: RD Assessment Patient Nutrition Acuity: 1-High Follow Up Date: Apr 29, 2018 Nutritional Comment: 04/27 Pt admitted for SBO. Pt NPO/Ice chips only. Hx of HTN, GERD, T2DM. Pt has distended stomach, but denies any n/v, abd pain. Pt has no flatus, but did have BM this am. C-Reactive protein elevated at 3.6. TB 04/29 Diet advanced today although not entered into computer. Recommend changing to an ADA diet. He ate salad and a roll, which seemed to go well. See education note about other diet education. Notable labs include K 3.2 and BG ranging between 122-152. -RUDDY PINON Apr 29, 2018 14:03
[2018-04-29 16:27] VITALS: BP 134/88
[2018-04-29 18:49] VITALS: BP 129/85
[2018-04-30 00:46] VITALS: BP 128/77
[2018-04-30] MEDS: HYDROCORTISONE 100 MG/2 ML IVP SCH ×2 (00:49→09:46)
[2018-04-30 05:01] VITALS: BP 146/94
[2018-04-30 08:25] VITALS: BP 129/77
[2018-04-30 09:10] VITALS: BP 132/78
--- NOTE | 2018-04-30 09:38 | General Surgery Progress Note ---
Subjective Progress Notes Subjective No significant complaints this AM. Had some dizziness early this morning, passed without specific intervention. Tolerated regular diet yesterday. Denies any increase in N/V, bloating or pain with regular diet. Patient Complains of: Neurological: Dizziness Cardiovascular: No: Chest Pain, Palpitations, Orthostatic Hypotension, Other Respiratory: No: Cough, Congestion, Shortness of Breath, Wheezing, Other Gastrointestinal: No Nausea, No Vomiting, No Flatus, No Bowel Movement, No Other Genitourinary: No Dysuria, No Hematuria, No Urinary Incontinence, No Other Physical Exam Vital Signs Date Time Temp Pulse Resp B/P (MAP) Pulse Ox O2 Delivery O2 Flow Rate FiO2 04/30/18 05:01 97.8 77 16 146/94 (111) 93 Room Air 04/27/18 07:12 1.0 Intake and Output 04/30/18 06:59 Intake Total 957 ml Balance 957 ml Intake Oral 957 ml # Voids 2 General Appearance: Alert, Awake, No Acute Distress, Afebrile Neuro: No Gross deficits ENT: Moist Mucous Membranes Cardiovascular: Regular Rate and Rhythm GI: Soft and Non-Tender Extremities: Soft and Non Tender Result Diagram: 04/29/1852404/29/18524 Assessment and Plan Problems: (1) SBO (small bowel obstruction) Status: Acute Assessment & Plan: 04/26/18: Admit, bowel rest/NPO, IV fluids. Will send stool for infectious disease w/u given enteritis and diarrhea. Will start IV steroids for suspected Crohn's based on enteritis with skip lesions. I have explained the CT findings with the patient as well as the suspected diagnoses and recommended treatment. He indicates his understanding of this discussion and his questions have been answered. Pt is agreeable with proceeding with this plan. 04/27/18: Doing well. No flatus yet and KUB with SBO. Continue IV steroids. Will start sips/chips today. Continue IV fluids. 04/28/18: Doing well this morning. Passing flatus since yesterday evening. KUB still with signs of SBO. CRP down this morning. Continue clear diet and continue IV steroids for now. Will reassess this afternoon and if he continues to progress then will consider regular diet later today. 04/29/18: Doing well. Passing flatus and stool. KUB improved on independent review this AM. Advance to regular diet. Possible DC tomorrow if tolerating diet. 04/30/18: Continues to do well. Tolerated regular diet yesterday. Labs stable. OK for DC to home today (2) Enteritis Status: Acute Assessment & Plan: Improving. Continue steroids. Will plan for outpatient steroid taper. Dietary instructions provided to patient. Exam Sepsis Risk: No Definite Risk GRADY HURTADO MD Apr 30, 2018 08:22
--- NOTE | 2018-04-30 09:42 | Short(Outpt) Discharge Summary ---
RANJANA ZHU MD 04/29/18 1001: Discharge Summary Reason for Hosp/Final Diag: (1) SBO (small bowel obstruction) Status: Acute Hospital Course & Plan: 04/26/18: Admit, bowel rest/NPO, IV fluids. Will send stool for infectious disease w/u given enteritis and diarrhea. Will start IV steroids for suspected Crohn's based on enteritis with skip lesions. I have explained the CT findings with the patient as well as the suspected diagnoses and recommended treatment. He indicates his understanding of this discussion and his questions have been answered. Pt is agreeable with proceeding with this plan. 04/27/18: Doing well. No flatus yet and KUB with SBO. Continue IV steroids. Will start sips/chips today. Continue IV fluids. 04/28/18: Doing well this morning. Passing flatus since yesterday evening. KUB still with signs of SBO. CRP down this morning. Continue clear diet and continue IV steroids for now. Will reassess this afternoon and if he continues to progress then will consider regular diet later today. (2) Enteritis Status: Acute Departure Discharge to: Home, Self Care Discharge Instructions Home Meds Active Scripts Prednisone 5 Mg Tab (PREDNISONE 5 MG TAB) 5 Mg Tablet, 1 TAB PO QDAY, #4 TAB 0 Refills Prov:RANJANA ZHU MD 04/29/18 Prednisone (PREDNISONE) 20 Mg Tablet, 3 TAB PO QDAY, #56 TAB 0 Refills Prov:RANJANA ZHU MD 04/29/18 Reported Medications Tadalafil (CIALIS) 5 Mg Tablet, 5 MG PO QDAY 10/15/17 Hydrochlorothiazide (HYDROCHLOROTHIAZIDE) 12.5 Mg Tablet, 1 TAB PO QDAY, TAB 10/15/17 Metformin Hcl (METFORMIN HCL) 500 Mg Tablet, 1 TAB PO BID, TAB 10/15/17 Omeprazole (OMEPRAZOLE) 20 Mg Tablet.dr, 20 MG PO BID, TAB 10/15/17 Amlodipine Besylate (AMLODIPINE BESYLATE) 10 Mg Tablet, 1 TAB PO QDAY, TAB 10/15/17 Cholecalciferol (Vitamin D3) (VITAMIN D3) 5,000 Unit Capsule, 5000 UNIT PO QDAY, CAPSULE 10/15/17 Ferrous Sulfate (FERROUS SULFATE) 325 Mg Tablet, 325 MG PO QDAY 10/15/17 Discontinued Scripts Pantoprazole Sodium (PANTOPRAZOLE SODIUM) 40 Mg Tablet.dr, 1 TAB PO DAILY, #60 TAB 3 Refills Take 1 tablet first thing every morning before eating and don't eat for 30 minutes after taking. Prov:RANJANA ZHU MD 10/27/17 Follow up Referrals: General Surgery - 05/13/18 @ Surgery, General with RANJANA ZHU MD You have a follow up appointment scheduled with Dr. Zhu on 05/13/18, at 11:45am. Diet: Regular Activity: As Tolerated GRADY HURTADO MD 04/30/18 0942: Discharge Summary Reason for Hosp/Final Diag: (1) Enteritis Status: Acute (2) SBO (small bowel obstruction) Status: Acute Hospital Course & Plan: 04/26/18: Admit, bowel rest/NPO, IV fluids. Will send stool for infectious disease w/u given enteritis and diarrhea. Will start IV steroids for suspected Crohn's based on enteritis with skip lesions. I have explained the CT findings with the patient as well as the suspected diagnoses and recommended treatment. He indicates his understanding of this discussion and his questions have been answered. Pt is agreeable with proceeding with this plan. 04/27/18: Doing well. No flatus yet and KUB with SBO. Continue IV steroids. Will start sips/chips today. Continue IV fluids. 04/28/18: Doing well this morning. Passing flatus since yesterday evening. KUB still with signs of SBO. CRP down this morning. Continue clear diet and continue IV steroids for now. Will reassess this afternoon and if he continues to progress then will consider regular diet later today. 04/29/18: Doing well, passing flatus and stool. Tolerating steroids. Advance diet to regular. 04/30/18: Tolerated regular diet without issue. No pain or nausea this AM. Passing flatus. Ready and appropriate for DC to home. Departure Discharge to: Home, Self Care Discharge Instructions Diet: Regular Activity: As Tolerated Special Instructions: Please follow steroid taper plan. Avoid uncooked vegetables or red meats in excess. RANJANA ZHU MD Apr 29, 2018 10:01 GRADY HURTADO MD Apr 30, 2018 09:42
[2018-04-30] MEDS: ENOXAPARIN 40 MG/0.4ML SYR SC SCH (09:45)
[2018-04-30] MEDS: PANTOPRAZOLE SOD 40 MG IV VIAL IVP SCH (09:46)
[2018-04-30] MEDS: HYDROCHLOROTHIAZIDE 25 MG TAB PO SCH (09:47)
[2018-04-30] MEDS: amLODIPine BESYL(*) 5 MG TAB PO SCH (09:47)
[2018-04-30 12:17] VITALS: Ht 172.7 cm; Wt 80.7 kg
== END 2018-04-30 11:34 | disposition home or self-care (01) | DRG 387 ==
LOC: ER 13:35 → MED 16:28
PROVIDERS: ADMIT Surgery; ATTEND Surgery
DX: K50.012 Crohn's disease of small intestine with intestinal obstruction (principal); I10 Essential (primary) hypertension; K21.9 Gastro-esophageal reflux disease without esophagitis; E11.9 Type 2 diabetes mellitus without complications; Z79.84 Long term (current) use of oral hypoglycemic drugs; K52.9 Noninfective gastroenteritis and colitis, unspecified
CPT/HCPCS: 36415; 36416; 74018; 74022; 74177; 81001; 82040; 82247; 82310; 82374; 82435; 82565; 82668; 82728; 82947; 82948; 83010; 83090; 83516; 83540; 83550; 83615; 83630; 83690; 83921; 84075; 84132; 84155; 84295; 84443; 84450; 84460; 84466; 84484; 84520; 85025; 85045; 85651; 86140; 87045; 87177; 87205; 87324; 87449; 93005; 96361; 96372; 96374; 96375; 99284; C9113; J1650; J1720; J2405; J7030; Q9967

== ENCOUNTER 2018-05-01 19:49 | Emergency (ER) | payer MEDICARE ==
[2018-04-30 12:17] VITALS: Wt 78.0 kg
[~2018-05-01 19:49] MED LIST changes: +PRE5 PO; +PRED20TA6 PO
--- NOTE | 2018-05-01 19:55 | ER Report ---
History and Physical Time Seen By : 19:55 HPI/ROS CHIEF COMPLAINT: Hyperglycemia HISTORY OF PRESENT ILLNESS: 68-year-old male recently admitted to the hospital discharge yesterday. He is a type II diabetic. He was diagnosed with Crohn's disease. Patient was discharged home on prednisone. He took 60 mg last evening. He also was administered steroids in the IV. He was discharged on the same day. Patient notices blood glucose was 264 at home. Patient does not feel particularly ill. He is just concerned. His glucose is running high. Patient's had diarrhea for several months. He notes no changes there. He's been eating a normal normal diabetic, appropriate diet. Nothing that would cause his glucose despite. REVIEW OF SYSTEMS: Respiratory: No cough, no dyspnea. Cardiovascular: No chest pain, no palpitations. Gastrointestinal: No vomiting, no abdominal pain. Musculoskeletal: No back pain. Allergies: Coded Allergies: No Known Allergies (Verified Allergy, Mild, 02/14/08) Home Meds Active Scripts Prednisone 5 Mg Tab (PREDNISONE 5 MG TAB) 5 Mg Tablet, 1 TAB PO QDAY, #4 TAB 0 Refills Prov:RANJANA ZHU MD 04/29/18 Prednisone (PREDNISONE) 20 Mg Tablet, 3 TAB PO QDAY, #56 TAB 0 Refills Prov:RANJANA ZHU MD 04/29/18 Reported Medications Tadalafil (CIALIS) 5 Mg Tablet, 5 MG PO QDAY 10/15/17 Hydrochlorothiazide (HYDROCHLOROTHIAZIDE) 12.5 Mg Tablet, 1 TAB PO QDAY, TAB 10/15/17 Metformin Hcl (METFORMIN HCL) 500 Mg Tablet, 1 TAB PO BID, TAB 10/15/17 Omeprazole (OMEPRAZOLE) 20 Mg Tablet.dr, 20 MG PO BID, TAB 10/15/17 Amlodipine Besylate (AMLODIPINE BESYLATE) 10 Mg Tablet, 1 TAB PO QDAY, TAB 10/15/17 Cholecalciferol (Vitamin D3) (VITAMIN D3) 5,000 Unit Capsule, 5000 UNIT PO QDAY, CAPSULE 10/15/17 Ferrous Sulfate (FERROUS SULFATE) 325 Mg Tablet, 325 MG PO QDAY 10/15/17 Discontinued Scripts Pantoprazole Sodium (PANTOPRAZOLE SODIUM) 40 Mg Tablet.dr, 1 TAB PO DAILY, #60 TAB 3 Refills Take 1 tablet first thing every morning before eating and don't eat for 30 minutes after taking. Prov:RANJANA ZHU MD 10/27/17 Past Medical/Surgical History Hypertension, type II diabetes on metformin, GERD, recent small bowel obstruction Reviewed Nurses Notes: Yes Old Medical Records Reviewed: Yes Hx Smoking: Yes (PIPE RARELY) Smoking Status: Never Smoker Hx Substance Use Disorder: No Hx Alcohol Use: Yes Constitutional Vital Sign - Last 24 Hours 05/01/18 05/01/18 05/01/18 05/01/18 19:54 19:55 20:00 20:04 Temp 97.7 Pulse 99 88 Resp 20 B/P (MAP) 148/90 148/90 (109) 120/92 (101) Pulse Ox 95 91 O2 Delivery Room Air Room Air 05/01/18 05/01/18 05/01/18 05/01/18 20:19 20:30 20:34 20:45 Pulse 84 80 73 B/P (MAP) 122/79 (93) Pulse Ox 89 94 94 O2 Delivery Room Air Room Air Room Air 05/01/18 21:00 Pulse 76 B/P (MAP) 125/89 (101) Pulse Ox 92 Intake and Output 05/01/18 05/01/18 05/02/18 14:59 22:59 06:59 Intake Total 700 ml Balance 700 ml Physical Exam Vital signs stable, afebrile, pulse ox normal General Appearance: The patient is alert, has no immediate need for airway protection and no current signs of toxicity. No acute distress, skin warm, dry, pink, well hydrated appearing HEENT: Pupils equal and round no injection. TMs normal, oropharynx without redness or exudate, mucous members are moist Respiratory: Chest is non tender, lungs are clear to auscultation. Cardiac: regular rate and rhythm Gastrointestinal: Abdomen is soft and non tender, no masses, bowel sounds normal. Musculoskeletal: Neck: Neck is supple and non tender. Extremities have full range of motion and are non tender. Skin: No rashes or lesions. DIFFERENTIAL DIAGNOSIS: After history and physical exam differential diagnosis was considered for hyperglycemia, diarrhea, Crohn's disease, Medical Decision Making Data Points Result Diagram: 05/01/18200305/01/182003 Laboratory Hematology Test 05/01/18 20:04 05/01/18 21:11 Red Blood Count 5.03 M/uL (4.00-5.60) Mean Corpuscular Volume 84.9 fL (80.0-96.0) Mean Corpuscular Hemoglobin 30.5 pg (26.0-33.0) Mean Corpuscular Hemoglobin Concent 36.0 g/dL (32.0-36.0) Red Cell Distribution Width 13.4 % (11.5-14.5) Mean Platelet Volume 7.1 fL (7.2-11.1) Neutrophils (%) (Auto) 86.8 % (39.4-72.5) Lymphocytes (%) (Auto) 6.4 % (17.6-49.6) Monocytes (%) (Auto) 6.5 % (4.1-12.4) Eosinophils (%) (Auto) 0.0 % (0.4-6.7) Basophils (%) (Auto) 0.3 % (0.3-1.4) Nucleated RBC Relative Count (auto) 0.0 /100WBC Neutrophils # (Auto) 11.1 K/uL (2.0-7.4) Lymphocytes # (Auto) 0.8 K/uL (1.3-3.6) Monocytes # (Auto) 0.8 K/uL (0.3-1.0) Eosinophils # (Auto) 0.0 K/uL (0.0-0.5) Basophils # (Auto) 0.0 K/uL (0.0-0.1) Nucleated RBC Absolute Count (auto) 0.00 K/uL Sodium Level 137 mmol/L (137-145) Potassium Level 3.1 mmol/L (3.5-5.0) Chloride Level 99 mmol/L (98-107) Carbon Dioxide Level 24 mmol/L (22-30) Blood Urea Nitrogen 16 mg/dl (9-21) Creatinine 0.90 mg/dl (0.66-1.25) Glomerular Filtration Rate Calc > 60.0 Random Glucose 147 mg/dl (75-110) Calcium Level 9.4 mg/dl (8.4-10.2) Total Bilirubin 0.7 mg/dl (0.2-1.3) Aspartate Amino Transf (AST/SGOT) 27 U/L (0-35) Alanine Aminotransferase (ALT/SGPT) 46 U/L (0-56) Alkaline Phosphatase 82 U/L (0-126) Total Protein 6.8 g/dl (6.3-8.2) Albumin 3.9 g/dl (3.5-5.0) Acetone, Qualitative Negative Whole Blood Glucose 139 mg/DL (75-110) Chemistry Test 05/01/18 20:04 05/01/18 21:11 White Blood Count 12.8 k/uL (4.5-11.0) Red Blood Count 5.03 M/uL (4.00-5.60) Hemoglobin 15.4 g/dL (14.0-18.0) Hematocrit 42.7 % (42.0-52.0) Mean Corpuscular Volume 84.9 fL (80.0-96.0) Mean Corpuscular Hemoglobin 30.5 pg (26.0-33.0) Mean Corpuscular Hemoglobin Concent 36.0 g/dL (32.0-36.0) Red Cell Distribution Width 13.4 % (11.5-14.5) Platelet Count 334 K/uL (150-450) Mean Platelet Volume 7.1 fL (7.2-11.1) Neutrophils (%) (Auto) 86.8 % (39.4-72.5) Lymphocytes (%) (Auto) 6.4 % (17.6-49.6) Monocytes (%) (Auto) 6.5 % (4.1-12.4) Eosinophils (%) (Auto) 0.0 % (0.4-6.7) Basophils (%) (Auto) 0.3 % (0.3-1.4) Nucleated RBC Relative Count (auto) 0.0 /100WBC Neutrophils # (Auto) 11.1 K/uL (2.0-7.4) Lymphocytes # (Auto) 0.8 K/uL (1.3-3.6) Monocytes # (Auto) 0.8 K/uL (0.3-1.0) Eosinophils # (Auto) 0.0 K/uL (0.0-0.5) Basophils # (Auto) 0.0 K/uL (0.0-0.1) Nucleated RBC Absolute Count (auto) 0.00 K/uL Glomerular Filtration Rate Calc > 60.0 Calcium Level 9.4 mg/dl (8.4-10.2) Total Bilirubin 0.7 mg/dl (0.2-1.3) Aspartate Amino Transf (AST/SGOT) 27 U/L (0-35) Alanine Aminotransferase (ALT/SGPT) 46 U/L (0-56) Alkaline Phosphatase 82 U/L (0-126) Total Protein 6.8 g/dl (6.3-8.2) Albumin 3.9 g/dl (3.5-5.0) Acetone, Qualitative Negative Whole Blood Glucose 139 mg/DL (75-110) Toxicology Test 05/01/18 20:04 Acetone, Qualitative Negative ED Course/Re-evaluation Clinical Indication for ER IV: Hydration, IV Access ED Course Patient was admitted to an examination room. H&P was done. The differential diagnoses was considered. On clinical examination, patient is a benign nons urgical abdomen. Patient's treated with IV fluid hydration. Diagnostic evaluation shows unremarkable labs a mildly elevated glucose of 147. Patient's glucose is rechecked with our monitor and his monitor comes back in the 196 range. Patient's advised not to be alarmed. The glucose is running high. He should not return unless his glucose is over 350. He is to continue on the prednisone taper as advised by his physicians. Decision to Disposition Date: May 01, 2018 Decision to Disposition Time: 21:22 Depart Departure Latest Vital Signs Vital Signs Date Time Temp Pulse Resp B/P (MAP) Pulse Ox O2 Delivery O2 Flow Rate FiO2 05/01/18 21:00 76 125/89 (101) 92 05/01/18 20:45 Room Air 05/01/18 19:54 97.7 20 Impression: Primary Impression: Steroid-induced hyperglycemia Additional Impressions: Type II diabetes mellitus Crohns disease Condition: Improved Disposition: HOME OR SELF-CARE Referrals: ENRIQUE PATEL PA-C (PCP) Patient Instructions: Diabetic Hyperglycemia (ED) Additional Instructions: Follow-up with your primary care in the next few days if unimproved, Return to the ER for glucose over 350 Problem Qualifiers Additional Impressions: Type II diabetes mellitus Diabetes mellitus manager long term care insulin use: with manager long term care use Diabetes mellitus complication status: without complication Qualified Codes: E11.9 - Type 2 diabetes mellitus without complications; Z79.4 - assisted (current) use of insulin Crohns disease Gastrointestinal tract location: small intestine Digestive disease complication type: without complication Qualified Codes: K50.00 - Crohn's disease of small intestine without complications ABHINAV ZAYAS DO May 01, 2018 19:55
[2018-05-01] MEDS ORDERED: NS(*) 0.9% 1000 ML BAG 1,000 ML IV ONE (20:00)
[2018-05-01 20:26] LABS: PLATELET COUNT, AUTOMATED 334 K/uL (150-450)
[2018-05-01 21:00] VITALS: BP 125/89
== END 2018-05-01 21:41 | disposition home or self-care (01) ==
LOC: ER 20:20
DX: E11.65 Type 2 diabetes mellitus with hyperglycemia (principal); Z79.4 Long term (current) use of insulin; K50.00 Crohn's disease of small intestine without complications
CPT/HCPCS: 36416; 82009; 82948; 85025; 96360; 99283; J7030; 82040; 82247; 82310; 82374; 82435; 82565; 82947; 84075; 84132; 84155; 84295; 84450; 84460; 84520

== ENCOUNTER → 2018-06-14 | Outpatient (CLI) | payer MEDICARE ==
[2018-04-30 12:17] VITALS: BMI 27.1
[~2018-06-14] MED LIST changes: +ACET-2043 PO; +ASCO-182 PO; +BIFI4CAP2 PO; +DEXT350P PO; +FLAX100053 PO; +VIT1TABL PO
--- NOTE | 2018-06-14 17:34 | EKG ---
FACILITY: [facility] - [place] PATIENT NAME: GHISLAINE NI : [id number] MR: [id number] V: [id number] EXAM DATE: ORDERING PHYSICIAN: ENRIQUE PATEL TECHNOLOGIST: IRENE Marquez Reason : PREOP-COLON Blood Pressure : / mmHG Vent. Rate : 085 BPM Atrial Rate : 085 BPM P-R Int : 156 ms QRS Dur : 098 ms QT Int : 358 ms P-R-T Axes : 055 -46 008 degrees QTc Int : 426 ms Normal sinus rhythm Left anterior fascicular block Voltage criteria for left ventricular hypertrophy R wave progression consistent with an old ant/sep DE vs lead placement Compared to previous, the diffuse ST-T abnormalities has resolved Confirmed by PRIYANKA SHARMA ([id number]) on 06/14/2018 6:01:06 PM Referred By: RANJANA ZHU Confirmed By:PRIYANKA SHARMA
== END ==
LOC: RESP 16:54
PROVIDERS: ATTEND Physician Assistant
DX: Z01.810 Encounter for preprocedural cardiovascular examination (principal); R94.31 Abnormal electrocardiogram [ECG] [EKG]
CPT/HCPCS: 93005

== ENCOUNTER 2018-06-17 02:12 | Day surgery (SDC) | payer MEDICARE ==
[2018-04-30 12:17] VITALS: Ht 172.7 cm; Wt 77.6 kg
[~2018-06-17] VITALS: Ht 172.7 cm; Wt 77.6 kg
[~2018-06-17 02:12] MED LIST changes: -AMLO-113 PO; +AMLO-127 PO
[2018-06-17] MEDS ORDERED: PROPOFOL EMUL(*) 10MG/ML 20 ML 40 ML ONE (06:57)
[2018-06-17 08:37] VITALS: BP 123/91
[2018-06-17] MEDS ORDERED: LIDO/EPI 1% MPF 1:200,000 30ML ONE (09:46)
[2018-06-17] MEDS ORDERED: PROPOFOL EMUL(*) 10MG/ML 20 ML 20 ML ONE (10:30)
[2018-06-17 10:47] VITALS: BP 103/76
--- NOTE | 2018-06-17 10:59 | NUR ---
1047-PT ARRIVES TO MT FROM OR ON CART IN LLAT POSITION. VSS SBAR REPORT BEDSIDE
[2018-06-17 11:00] VITALS: BP 106/76
--- NOTE | 2018-06-17 11:02 | NUR ---
1102-PT WAKES AT THIS TIME, TRIALED ON ROOM AIR
[2018-06-17] MEDS ORDERED: BUDE3CAP6 PO (11:04)
--- NOTE | 2018-06-17 11:12 | Short(Outpt) Discharge Summary ---
Discharge Summary Reason for Hosp/Final Diag: (1) Enteritis Status: Chronic Hospital Course & Plan: Colonoscopy with biopsies completed without problems. Departure Discharge to: Home, Self Care Discharge Instructions Home Meds Active Scripts Budesonide (BUDESONIDE EC) 3 Mg Capdr...er, 3 CAPSULE PO QAM, #180 CALORIES 0 Refills Prov:RANJANA ZHU MD 06/17/18 Reported Medications Ascorbic Acid (VITAMIN C) 500 Mg Tablet, 500 MG PO QDAY, TAB 06/06/18 Acetaminophen (ACETAMINOPHEN) 500 Mg Tablet, 500-1000 MG PO Q4-6H PRN for PAIN, TAB 06/06/18 Dextrin (FIBER) 350 Gm Powder, 350 GM PO QDAY 06/06/18 Flaxseed Oil (FLAXSEED) 1,000 Mg Capsule, 1000 MG PO QDAY, CAPSULE 06/06/18 Vit B Cmplx & C#11/Ca/Dha/Q10 (BRAIN [id number]-CT Q10 TABLET) 1 Each Tablet, 1 EACH PO QDAY 06/06/18 Bifidobacterium Infantis (ALIGN) 4 Mg Capsule, 4 MG PO QDAY, CAPSULE 06/06/18 Tadalafil (CIALIS) 5 Mg Tablet, 5 MG PO QDAY 10/15/17 Hydrochlorothiazide (HYDROCHLOROTHIAZIDE) 12.5 Mg Tablet, 1 TAB PO QDAY, TAB 10/15/17 Metformin Hcl (METFORMIN HCL) 500 Mg Tablet, 1 TAB PO BID, TAB 10/15/17 Omeprazole (OMEPRAZOLE) 20 Mg Tablet.dr, 20 MG PO BID, TAB 10/15/17 Amlodipine Besylate (AMLODIPINE BESYLATE) 10 Mg Tablet, 1 TAB PO QDAY, TAB 10/15/17 Cholecalciferol (Vitamin D3) (VITAMIN D3) 5,000 Unit Capsule, 5000 UNIT PO QDAY, CAPSULE 10/15/17 Ferrous Sulfate (FERROUS SULFATE) 325 Mg Tablet, 325 MG PO QDAY 10/15/17 Follow up Referrals: General Surgery - 07/13/18 @ Surgery, General with RANJANA ZHU MD You have a follow up appointment scheduled with Dr. Zhu on 07/13/18, at 2:00pm. Diet: Regular Activity: As Tolerated Special Instructions: You have inflammation in your small intestines suspicious for Crohns disease. I biopsied this area. I am prescribing a medication to treat this inflammation called budesonide. Take 3 pills every morning for a total of 8 weeks and I prescribed enough to get you through this entire 8 month period. I will see you back in my office over this period of time to see how you're responding to this treatment and we'll likely need to repeat your colonoscopy in the next 6-12 months to see how the inflammation is progressing over time. RANJANA ZHU MD Jun 17, 2018 11:12
[2018-06-17] MEDS ORDERED: LIDOCAINE/SOD BICARB 8.4% SYR ID ONE (11:15)
[2018-06-17] MEDS ORDERED: NORMOSOL R SOLN(*) 1000 ML BAG 1,000 ML IV PRN (11:15)
[2018-06-17 11:32] VITALS: BP 110/82
[2018-06-17 11:53] VITALS: BP 113/76
[2018-06-17 11:54] VITALS: BP 113/76
--- NOTE | 2018-06-17 13:16 | NUR ---
pt escorted out via admitting entrance at this time. pt given verbal and written discharge instructions. denies any further questions or concerns.
== END 2018-06-17 12:24 | disposition home or self-care (01) ==
LOC: OR 02:12
PROVIDERS: ATTEND Surgery
DX: K52.9 Noninfective gastroenteritis and colitis, unspecified (principal); I10 Essential (primary) hypertension; E11.9 Type 2 diabetes mellitus without complications; K21.9 Gastro-esophageal reflux disease without esophagitis
CPT/HCPCS: 00811; 36416; 45380; 82948; 83516; 85651; 86140; 88305; J2704

== ENCOUNTER → 2018-10-05 | Outpatient (CLI) | payer MEDICARE ==
[2018-04-30 12:17] VITALS: BMI 27.1
[~2018-10-05] MED LIST changes: +BUDE3CAP6 PO
--- NOTE | 2018-10-05 18:29 | RADIOLOGY IMAGING REPORT ---
FACILITY: [facility] - [place] PATIENT NAME: Adrian Morales : 1950 MR: [id number] V: [id number] EXAM DATE: ORDERING PHYSICIAN: ENRIQUE PATEL TECHNOLOGIST: Location: [facility] - [place], [place] Patient: Adrian Morales : 1950 Visit/Account:[id number] Date of Sevice: 10/05/2018 US GROIN HISTORY: Patient feels like the right-sided groin is thicker than the left. COMPARISON: CT examination April 26, 2018. FINDINGS: Ultrasound images demonstrate no evidence of abnormal mass, fluid collection or hernia. No vascular a bnormality. Subcutaneous layers appears symmetric. IMPRESSION: Unremarkable interrogation of the right groin. Right groin appears symmetric to the left. Report Dictated By: Arash Rachel MD at 10/05/2018 6:24 PM Report E-Signed By: Arash Rachel MD at 10/05/2018 6:26 PM WSN:[id number]
== END ==
LOC: US 12:28
PROVIDERS: ATTEND Physician Assistant
DX: R10.31 Right lower quadrant pain (principal)
CPT/HCPCS: 76705

== ENCOUNTER 2018-12-14 03:33 | Inpatient (IN) | payer MEDICARE ==
[2018-04-30 12:17] VITALS: Ht 172.7 cm; Wt 78.9 kg
[~2018-12-14] VITALS: Ht 172.7 cm; Wt 78.9 kg
[2018-12-14] MEDS ORDERED: NS(*) 0.9% 1000 ML BAG 1,000 ML IV ONE (03:50)
[2018-12-14] MEDS ORDERED: ONDANSETRON 4 MG/2 ML VIAL IVP ONE (03:55)
[2018-12-14] MEDS ORDERED: GLYCOPYRROLATE 0.2MG/ML 1 ML INJ IVP ONE (03:55)
[2018-12-14 04:04] LABS: PLATELET COUNT, AUTOMATED 271 K/uL (150-450)
--- NOTE | 2018-12-14 04:33 | RADIOLOGY IMAGING REPORT ---
FACILITY: [facility] - [place] PATIENT NAME: Adrian Morales : 1950 MR: [id number] V: [id number] EXAM DATE: ORDERING PHYSICIAN: FAUSTINO LAMB TECHNOLOGIST: Location: [facility] - [place], [place] Patient: Adrian Morales : 1950 Visit/Account:[id number] Date of Sevice: 12/14/2018 ACUTE ABDOMEN SERIES 3 VIEW Comparison: None Additional pertinent history: Abdominal pain with distention FINDINGS: PA chest: Cardiomediastinal silhouette: Negative. Cardiopulmonary vasculature: Negative. Lung parenchyma: Negative. Pleural spaces: Negative Osseous structures: Negative. Surrounding soft tissues: Negative. Abdomen: Free air: None. Bowel gas pattern: Multiple dilated loops of small bowel in the upper abdomen with air-fluid levels concerning for developing small bowel obstruction. Solid organs/surrounding soft tissues: Negative. Osseous structures: Negative. Impression: 1. Findings concerning for developing small bowel obstruction. 2. No acute cardiopulmonary disease. Report Dictated By: Christopher Jacobo MD at 12/14/2018 4:25 AM Report E-Signed By: Christopher Jacobo MD at 12/14/2018 4:27 AM WSN:[id number]
[2018-12-14] MEDS ORDERED: methylPREDNIS SUCC 125 MG/2ML IVP ONE (04:40)
[2018-12-14] MEDS ORDERED: IOPAMIDOL 76% 100 ML INFUS BTL 100 ML ONE (04:50)
--- NOTE | 2018-12-14 05:28 | RADIOLOGY IMAGING REPORT ---
FACILITY: [facility] PATIENT NAME: dArian Morales : 1950 MR: [id number] V: [id number] EXAM DATE: ORDERING PHYSICIAN: FAUSTINO LAMB TECHNOLOGIST: Location: [facility] Patient: Ardian Morales : 1950 Visit/Account:[id number] Date of Sevice: 12/14/2018 CT ABDOMEN PELVIS W/ CON COMPARISONS: CT abdomen and pelvis dated April 26, 2018 ADDITIONAL PERTINENT HISTORY: Bloating with history of small bowel obstruction TECHNIQUE: Multiple axial images were obtained from the lung bases through the lesser trochanters bef ore and after the IV administration of IV contrast. One of the following dose optimization technique s was utilized in the performance of this exam: Automated exposure control; adjustment of the mA and/ or kV according to the patient's size; or use of an iterative reconstruction technique. Specific de tails can be referenced in the facility's radiology CT exam operational policy. CONTRAST: 75 ml of Isovue-370 FINDINGS: Lung bases: Mild bibasilar atelectatic change. Free air and free fluid: None. Liver: Negative. Spleen: Negative. Kidneys, ureters and urinary bladder: Small low-attenuation lesion involving the midportion of the ri ght kidney consistent with a small cyst. Adrenal glands: Negative. Pancreas: Negative. Gallbladder: Small calcified gallstone within the midportion of the gallbladder consistent with jennifer lithiasis. No CT evidence of acute cholecystitis. Bowel and mesentery: Multiple dilated loops of small bowel extending into the mid abdomen with decomp ressed distal small bowel and colon compatible with a developing small bowel obstruction.. Pelvic contents: Negative Lymph node assessment: Negative. Retroperitoneum: Negative. Abdominal vasculature: Mild atherosclerotic disease of the abdominal aorta and its major branches. Surrounding soft tissues: Negative. Osseous structures: Spondylitic change involving the lower lumbar spine. No acute appearing bony abno rmalities. IMPRESSION: 1. Findings concerning for a developing high-grade small bowel obstruction in the mid jejunum. 2. No other acute intra-abdominal or intrapelvic process. Report Dictated By: Christopher Jacobo MD at 12/14/2018 5:16 AM Report E-Signed By: Christopher Jacobo MD at 12/14/2018 5:21 AM WSN:[id number]
--- NOTE | 2018-12-14 05:45 | ER Report ---
History and Physical Time Seen By MD: 03:40 Hx. of Stated Complaint: GI PAIN AND DISTRESS STARTED AROUND 0100; N/V HPI/ROS CHIEF COMPLAINT: Abdominal pain, vomiting HISTORY OF PRESENT ILLNESS: 68-year-old male with Crohn's and diabetes, presents with abdominal pain, vomiting, distention. Symptoms started suddenly over the last 2 hours. Patient felt increasing distention and presents here. He states is similar to prior bowel obstruction for which he was admitted this year. Patient last ate at 7 PM. There was no chest pain, shortness breath, fever, chills. Pain is severe. He is taking nothing for the pain. He has taken Pepto- Bismol for the nausea which has not been effective. REVIEW OF SYSTEMS: Constitutional: No fever, no chills. Eyes: No discharge. ENT: No sore throat. Cardiovascular: No chest pain, no palpitations. Respiratory: No cough, no shortness of breath. Gastrointestinal: above Genitourinary: no dysuria Musculoskeletal: No back pain. Skin: No rashes. Neurological: No headache. Remainder of the 14 system rev: Yes Allergies: Coded Allergies: No Known Allergies (Verified Allergy, Mild, 06/06/18) Home Meds Reported Medications Omeprazole (OMEPRAZOLE) 40 Mg Capsule.dr, 40 MG PO QDAY, CAP 12/14/18 Ascorbic Acid (VITAMIN C) 500 Mg Tablet, 500 MG PO QDAY, TAB 06/06/18 Acetaminophen (ACETAMINOPHEN) 500 Mg Tablet, 500-1000 MG PO Q4-6H PRN for PAIN, TAB 06/06/18 Dextrin (FIBER) 350 Gm Powder, 350 GM PO QDAY 06/06/18 Vit B Cmplx & C#11/Ca/Dha/Q10 (BRAIN OPTHF-IXV-PS Q10 TABLET) 1 Each Tablet, 1 EACH PO QDAY 06/06/18 Bifidobacterium Infantis (ALIGN) 4 Mg Capsule, 4 MG PO QDAY, CAPSULE 06/06/18 Tadalafil (CIALIS) 5 Mg Tablet, 5 MG PO QDAY 10/15/17 Hydrochlorothiazide (HYDROCHLOROTHIAZIDE) 12.5 Mg Tablet, 1 TAB PO QDAY, TAB 10/15/17 Metformin Hcl (METFORMIN HCL) 500 Mg Tablet, 1 TAB PO BID, TAB 10/15/17 Amlodipine Besylate (AMLODIPINE BESYLATE) 10 Mg Tablet, 1 TAB PO QDAY, TAB 10/15/17 Cholecalciferol (Vitamin D3) (VITAMIN D3) 5,000 Unit Capsule, 5000 UNIT PO QDAY, CAPSULE 10/15/17 Discontinued Reported Medications Flaxseed Oil (FLAXSEED) 1,000 Mg Capsule, 1000 MG PO QDAY, CAPSULE 06/06/18 Omeprazole (OMEPRAZOLE) 20 Mg Tablet.dr, 20 MG PO BID, TAB 10/15/17 Ferrous Sulfate (FERROUS SULFATE) 325 Mg Tablet, 325 MG PO QDAY 10/15/17 Discontinued Scripts Budesonide (BUDESONIDE EC) 3 Mg Capdr...er, 3 CAPSULE PO QAM, #180 CALORIES 0 Refills Prov:RANJANA ZHU MD 06/17/18 Reviewed Nurses Notes: Yes Old Medical Records Reviewed: Yes Hx Smoking: Yes (PIPE RARELY) Smoking Status: Never Smoker Hx Substance Use Disorder: No Hx Alcohol Use: Yes Constitutional Vital Sign - Last 24 Hours 12/14/18 12/14/18 12/14/18 12/14/18 03:38 03:41 04:12 04:20 Temp 97.6 Pulse 97 Resp 17 B/P (MAP) 155/100 (118) 155/100 135/97 (110) Pulse Ox 97 O2 Delivery Room Air O2 Flow Rate 2.0 12/14/18 12/14/18 12/14/18 12/14/18 04:30 04:33 05:30 05:33 Pulse 97 94 B/P (MAP) 115/80 (92) 124/88 (100) Pulse Ox 97 95 12/14/18 12/14/18 12/14/18 05:38 05:43 05:48 Pulse 96 93 94 Pulse Ox 94 95 96 Physical Exam General Appearance: The patient is alert, has no immediate need for airway protection and no signs of toxicity. [ ] Eyes: Pupils equal and round no pallor or injection. ENT, Mouth: Mucous membranes are moist. Respiratory: There are no retractions, lungs are clear to auscultation. Cardiovascular: Regular rate and rhythm. [ ] Gastrointestinal: abdomen distended, tympanitic Neurological: alert, no gross deficit Skin: Warm and dry, no rashes. Musculoskeletal: Extremities are nontender, nonswollen and have full range of motion. DIFFERENTIAL DIAGNOSIS: After history and physical exam differential diagnosis was considered for abdominal pain including but not limited to obstruction, appendicitis, cholecystitis, gastritis and urinary tract infection. Medical Decision Making Data Points Result Diagram: 12/15/18 0505 12/15/18 0505 Laboratory Hematology Test 12/14/18 03:43 12/14/18 03:45 12/14/18 05:05 Total Bilirubin 0.8 mg/dl (0.2-1.3) Aspartate Amino Transf (AST/SGOT) 27 U/L (0-35) Alanine Aminotransferase (ALT/SGPT) 36 U/L (0-56) Alkaline Phosphatase 129 U/L (0-126) Total Protein 7.9 g/dl (6.3-8.2) Albumin 4.7 g/dl (3.5-5.0) Lipase 314 U/L (23-300) Erythrocyte Sedimentation Rate 14 mm/HOUR (0-20) C-Reactive Protein 1.2 mg/dl (<1.0) Urine Color Yellow Urine Clarity Clear Urine pH 6.0 pH (4.8-9.5) Urine Specific [place] 1.030 Urine Protein Negative mg/dL (NEGATIVE) Urine Glucose (UA) Negative mg/dL (NEGATIVE) Urine Ketones Trace mg/dL (NEGATIVE) Urine Blood Negative (NEGATIVE) Urine Nitrite Negative (NEGATIVE) Urine Bilirubin Negative (NEGATIVE) Urine Urobilinogen Negative mg/dL (0.2-1.9) Urine Leukocyte Esterase Negative (NEGATIVE) Urine RBC None /HPF (0-2/HPF) Urine WBC <1 /HPF (0-5/HPF) Urine Squamous Epithelial Cells None /LPF (</=FEW) Urine Bacteria Negative /HPF (NONE-FEW) Urine Mucus None /HPF (NONE-FEW) Chemistry Test 12/14/18 03:43 12/14/18 03:45 12/14/18 05:05 Total Bilirubin 0.8 mg/dl (0.2-1.3) Aspartate Amino Transf (AST/SGOT) 27 U/L (0-35) Alanine Aminotransferase (ALT/SGPT) 36 U/L (0-56) Alkaline Phosphatase 129 U/L (0-126) Total Protein 7.9 g/dl (6.3-8.2) Albumin 4.7 g/dl (3.5-5.0) Lipase 314 U/L (23-300) Erythrocyte Sedimentation Rate 14 mm/HOUR (0-20) C-Reactive Protein 1.2 mg/dl (<1.0) Urine Color Yellow Urine Clarity Clear Urine pH 6.0 pH (4.8-9.5) Urine Specific [place] 1.030 Urine Protein Negative mg/dL (NEGATIVE) Urine Glucose (UA) Negative mg/dL (NEGATIVE) Urine Ketones Trace mg/dL (NEGATIVE) Urine Blood Negative (NEGATIVE) Urine Nitrite Negative (NEGATIVE) Urine Bilirubin Negative (NEGATIVE) Urine Urobilinogen Negative mg/dL (0.2-1.9) Urine Leukocyte Esterase Negative (NEGATIVE) Urine RBC None /HPF (0-2/HPF) Urine WBC <1 /HPF (0-5/HPF) Urine Squamous Epithelial Cells None /LPF (</=FEW) Urine Bacteria Negative /HPF (NONE-FEW) Urine Mucus None /HPF (NONE-FEW) Urinalysis Test 12/14/18 05:05 Urine Color Yellow Urine Clarity Clear Urine pH 6.0 pH (4.8-9.5) Urine Specific [place] 1.030 Urine Protein Negative mg/dL (NEGATIVE) Urine Glucose (UA) Negative mg/dL (NEGATIVE) Urine Ketones Trace mg/dL (NEGATIVE) Urine Blood Negative (NEGATIVE) Urine Nitrite Negative (NEGATIVE) Urine Bilirubin Negative (NEGATIVE) Urine Urobilinogen Negative mg/dL (0.2-1.9) Urine Leukocyte Esterase Negative (NEGATIVE) Urine RBC None /HPF (0-2/HPF) Urine WBC <1 /HPF (0-5/HPF) Urine Squamous Epithelial Cells None /LPF (</=FEW) Urine Bacteria Negative /HPF (NONE-FEW) Urine Mucus None /HPF (NONE-FEW) ED Course/Re-evaluation ED Course 68 m with abd pain, distension, hx bowel obstruction. No peritoneal sgs. Findings consistent with bowel obstruction wt mid jejunum transition point. Will admit to Dr. Zhu. Symptoms controlled with modesta wooten. Pt is aware he should hold metformin for 48 hrs after iv contrast today. Decision to Disposition Date: Dec 14, 2018 Decision to Disposition Time: 05:39 Depart Departure Latest Vital Signs Vital Signs Date Time Temp Pulse Resp B/P (MAP) Pulse Ox O2 Delivery O2 Flow Rate FiO2 12/14/18 05:48 94 96 12/14/18 05:30 124/88 (100) 12/14/18 04:20 2.0 7/10/19 03:41 97.6 17 Room Air Impression: Primary Impression: SBO (small bowel obstruction) Condition: Condition Unchanged Disposition: Admitted from ER Referrals: ENRIQUE PATEL PA-C (PCP) FAUSTINO LAMB MD Dec 14, 2018 05:45
[2018-12-14] MEDS ORDERED: OMEP40CA48 PO (06:35)
[2018-12-14 06:38] VITALS: BP 140/91
[2018-12-14] MEDS ORDERED: ONDANSETRON 4 MG/2 ML VIAL IVP PRN (07:15)
[2018-12-14] MEDS ORDERED: FLUSH 10 ML SYR IVP PRN (07:15)
[2018-12-14] MEDS ORDERED: MORPHINE 2 MG/ML SYR IVP PRN (07:15)
[2018-12-14] MEDS: INSULIN HUM LISPRO 100 UN/ML 3 ML VIAL SUBQ PRN ×2 (08:04→12:22)
[2018-12-14] MEDS ORDERED: PANTOPRAZOLE SOD 40 MG IV VIAL IVP SCH (09:00)
[2018-12-14] MEDS: ENOXAPARIN 40 MG/0.4ML SYR SC SCH (09:10)
[2018-12-14] MEDS: HYDROCORTISONE 100 MG/2 ML IVP SCH ×2 (09:11→17:34)
[2018-12-14] MEDS: NS(*) 0.9% 1000 ML BAG 1,000 ML IV PRN ×2 (09:17→21:16)
[2018-12-14 10:47] VITALS: BP 131/90
--- NOTE | 2018-12-14 11:49 | NUR ---
[facility] order verified by lab ([facility]) at this time. [facility] states this labwork takes 4 to 5 business to process, samples sent out 12/14/18. Order for lab is visible only to lab personnel in [facility]. Note made in lab to call Dr. Kim with results.
--- NOTE | 2018-12-14 13:02 | Gen Surgery History & Physical ---
History of Present Illness Chief Complaint Abdominal pain, N/V History of Present Illness 68yo male presents with several hours of abdominal pain, bloating, and N/V. He was admitted about 9 months ago with SBO due to ileitis c/w possible Crohn's and he was treated with IV then PO steroids for several weeks followed by a taper then 3 months of budesonide. He has been doing well until early this morning. CT c/w SBO, no enteritis on the current study. SBO in jejunum. Pt without h/o abdominal surgery. He received a dose of solu-cortef in the ER and he report that his symptoms seem to be getting better. Last flatus or BM was last ev ening. History Problems: (1) Anemia Status: Chronic (2) GERD (gastroesophageal reflux disease) Status: Chronic (3) Hypertension Status: Chronic (4) Diabetes type 2, controlled Status: Chronic Home Meds Reported Medications Omeprazole (OMEPRAZOLE) 40 Mg Capsule.dr, 40 MG PO QDAY, CAP 12/14/18 Ascorbic Acid (VITAMIN C) 500 Mg Tablet, 500 MG PO QDAY, TAB 06/06/18 Acetaminophen (ACETAMINOPHEN) 500 Mg Tablet, 500-1000 MG PO Q4-6H PRN for PAIN, TAB 06/06/18 Dextrin (FIBER) 350 Gm Powder, 350 GM PO QDAY 06/06/18 Vit B Cmplx & C#11/Ca/Dha/Q10 (BRAIN [id number] Q10 TABLET) 1 Each Tablet, 1 EACH PO QDAY 06/06/18 Bifidobacterium Infantis (ALIGN) 4 Mg Capsule, 4 MG PO QDAY, CAPSULE 06/06/18 Tadalafil (CIALIS) 5 Mg Tablet, 5 MG PO QDAY 10/15/17 Hydrochlorothiazide (HYDROCHLOROTHIAZIDE) 12.5 Mg Tablet, 1 TAB PO QDAY, TAB 10/15/17 Metformin Hcl (METFORMIN HCL) 500 Mg Tablet, 1 TAB PO BID, TAB 10/15/17 Amlodipine Besylate (AMLODIPINE BESYLATE) 10 Mg Tablet, 1 TAB PO QDAY, TAB 10/15/17 Cholecalciferol (Vitamin D3) (VITAMIN D3) 5,000 Unit Capsule, 5000 UNIT PO QDAY, CAPSULE 10/15/17 Discontinued Reported Medications Flaxseed Oil (FLAXSEED) 1,000 Mg Capsule, 1000 MG PO QDAY, CAPSULE 06/06/18 Omeprazole (OMEPRAZOLE) 20 Mg Tablet.dr, 20 MG PO BID, TAB 10/15/17 Ferrous Sulfate (FERROUS SULFATE) 325 Mg Tablet, 325 MG PO QDAY 10/15/17 Discontinued Scripts Budesonide (BUDESONIDE EC) 3 Mg Capdr...er, 3 CAPSULE PO QAM, #180 CALORIES 0 Refills Prov:RANJANA ZHU MD 06/17/18 Allergies: Coded Allergies: No Known Allergies (Verified Allergy, Mild, 06/06/18) Review of Systems All Systems Reviewed/Normal: Yes, Except as Noted Gastrointestinal: Nausea, Vomiting, Abdominal Pain Exam General Appearance: Alert, Awake, No Acute Distress, Afebrile Neuro: No Gross deficits Eyes: PERRLA GI: Abd Soft and Non-Tender (Mildly distended) Extremities: Warm, Perfused Psych: Alert & Oriented X3, Appropriate Mood & Affect Medical Decision Making Data Points Result Diagram: 12/14/18 0343 12/14/18 0343 Assessment and Plan Problems: (1) SBO (small bowel obstruction) Status: Acute Assessment & Plan: 12/14/18: SBO likely related to Crohn's although enteritis not specifically seen on CT. Will start IV steroids and see if he improves over the next couple of days. Will send off Prometheus panel. Start ISS and check blood sugars q6 hours (achs when eating). Pt agreeable with this plan. Condition Stable. Time Spent: < 30 min Venous Thromboembolism VTE Risk Physician Assess for VTE Risk: Yes Patient's VTE Risk: Low VTE Diagnostic Test 2 Days Prior to Admit: No Antithrombotics Is Pt On Any Antithrombotics?: No RANJANA ZHU MD Dec 14, 2018 13:02
--- NOTE | 2018-12-14 17:42 | Medical Nutrition Therapy ---
Nutrition Anthropometrics Height (Inches): 68.00 Height (Calculated Centimeters: 172.759976 Weight (Pounds): 174 Weight (Calculated Kilograms): 78.925 BMI: 26.5 Vasiliy Nutrition Score: Adequate Vasiliy Nutrition Risk Score: 20 Dietary Referral Nutrition Risk Factors: Nutrition Risk Comment: Physical Findings Physical Appearance: Overweight BMI 25-29 Skin Appearance Skin Appearance: Edema Edema Location Modifier: Edema Location: Type of Edema: Degree of Edema: Gastrointestinal Symptoms GI Symtoms: Tube Present: Bowel Sounds: Recent Bowel Pattern: Stool Characteristics: Nutrition/Food History Increased Appetite, Decreased Appetite Poor Breakfast: Oatmeal and Fruit Lunch: [place] Bread/Sausage Dinner: Salad, Beans, Chicken and Rice Nutritional Diagnosis Nutritional Risk Acuity 1: GI Obstruction Past Medical History: Hx of HTN, GERD, T2DM Nutritional Acuity: 1-High Nutrition Diagnosis: Inadequate Food Intake Nutrition Etiology: Physiological Causes Nutrition Problem/Etiology/Sym: SBO Energy Requirement: 2465 (MSJ) Protein Requirement: 79 (1g/kg) Fluid Requirement: 2465 (1mL/kca) Nutrition Monitoring & Eval Nutrition Follow-Up: Poor Intake Nutrition Monitoring: Monitor SBO resolution, NPO status RD Patient Assessment Time: [address] Assessment Type: RD Assessment Patient Nutrition Acuity: 1-High Follow Up Date: Dec 16, 2018 Nutritional Comment: 12/14/18: Spoke with pt this afternoon. Pt currently following diabetic diet at home. Checking BG at home reguarly, exercises regularly. BGs within goal ranges. He is well nourished typically eats 3 small meals per day and snacks. He does not report any recent wt loss. Recommend TPN if SBO is not resolved within next five days, and I discussed this with the pt. Will continue to monitor and provide TPN recommendations as needed.KIANNA LUTHER Dec 14, 2018 17:42
[2018-12-14 20:36] VITALS: BP 128/83
[2018-12-14 22:55] VITALS: BP 129/88
[2018-12-15] MEDS: HYDROCORTISONE 100 MG/2 ML IVP SCH ×3 (00:20→16:56)
[2018-12-15 04:12] VITALS: BP 127/84
[2018-12-15 05:50] LABS: PLATELET COUNT, AUTOMATED 203 K/uL (150-450)
[2018-12-15] MEDS: NS(*) 0.9% 1000 ML BAG 1,000 ML IV PRN (06:35)
[2018-12-15] MEDS ORDERED: NS(*) 0.9% 1000 ML BAG 1,000 ML IV PRN (08:00)
[2018-12-15] MEDS: ENOXAPARIN 40 MG/0.4ML SYR SC SCH (09:21)
[2018-12-15] MEDS: PANTOPRAZOLE SOD 40 MG TABEC PO SCH (09:21)
--- NOTE | 2018-12-15 09:33 | General Surgery Progress Note ---
Subjective Progress Notes Subjective No complaints this morning. Abdominal pain has resolved and he's passing flatus. He's hungry. Physical Exam Vital Signs Date Time Temp Pulse Resp B/P (MAP) Pulse Ox O2 Delivery O2 Flow Rate FiO2 12/15/18 09:25 92 Room Air 12/15/18 04:12 97.8 92 16 127/84 (98) 2.0 Intake and Output 12/15/18 07:02 Intake Total 1157 ml Balance 1157 ml Intake Oral 0 ml IV Total 1157 ml # Voids 1 General Appearance: Alert, Awake, No Acute Distress, Afebrile GI: Soft and Non-Tender Result Diagram: 12/15/18 0505 12/15/18 0505 Assessment and Plan Problems: (1) SBO (small bowel obstruction) Status: Acute Assessment & Plan: 12/14/18: SBO likely related to Crohn's although enteritis not specifically seen on CT. Will start IV steroids and see if he improves over the next couple of days. Will send off Prometheus panel. Start ISS and check blood sugars q6 hours (aches when eating). Pt agreeable with this plan. 12/15/18: SBO resolving. Will start clear diet and advance diet today as he to lerates. Continue IV steroid until tolerating regular diet and then will convert to PO prednisone. Prometheus panel pending. Hopeful for d/c to home tomorrow. Condition Stable Time Spent: < 30 min Exam Sepsis Risk: No Definite Risk RANJANA ZHU MD Dec 15, 2018 09:33
[2018-12-15 11:18] VITALS: BP 132/87
[2018-12-15] MEDS: INSULIN HUM LISPRO 100 UN/ML 3 ML VIAL SUBQ PRN ×2 (13:04→21:28)
[2018-12-15 18:11] VITALS: BP 143/90
[2018-12-16 01:19] VITALS: BP 132/86
[2018-12-16] MEDS: HYDROCORTISONE 100 MG/2 ML IVP SCH (01:22)
[2018-12-16 07:03] VITALS: BP 133/86
[2018-12-16] MEDS: INSULIN HUM LISPRO 100 UN/ML 3 ML VIAL SUBQ PRN (08:03)
[2018-12-16] MEDS ORDERED: PRE5 PO (08:38)
[2018-12-16] MEDS ORDERED: PRED20TA6 PO (08:38)
--- NOTE | 2018-12-16 08:43 | Short(Outpt) Discharge Summary ---
Discharge Summary Reason for Hosp/Final Diag: (1) SBO (small bowel obstruction) Status: Acute Hospital Course & Plan: 12/14/18: SBO likely related to Crohn's although enteritis not specifically seen on CT. Will start IV steroids and see if he improves over the next couple of days. Will send off Prometheus panel. Start ISS and check blood sugars q6 hours (aches when eating). Pt agreeable with this plan. 12/15/18: SBO resolving. Will start clear diet and advance diet today as he tolerates. Continue IV steroid until tolerating regular diet and then will convert to PO prednisone. Prometheus panel pending. Hopeful for d/c to home tomorrow. 12/16/18: SBO resolved, likely due to Crohn's flare. Now asymptomatic. Will d/c to home today on outpatient PO steroids and I'll see him back in my office and manage his steroid taper, discuss the Prometheus panel results with him, and initiate maintenance therapy. Departure Discharge to: Home, Self Care Discharge Instructions Home Meds Active Scripts Prednisone 5 Mg Tab (PREDNISONE 5 MG TAB) 5 Mg Tablet, 1 TAB PO QDAY, #7 TAB 0 Refills Prov:RANJANA ZHU MD 12/16/18 Prednisone (PREDNISONE) 20 Mg Tablet, 3 TAB PO QDAY, #70 TAB 0 Refills Follow provided instructions for prolonged steroid taper Prov:RANJANA ZHU MD 12/16/18 Reported Medications Omeprazole (OMEPRAZOLE) 40 Mg Capsule.dr, 40 MG PO QDAY, CAP 12/14/18 Ascorbic Acid (VITAMIN C) 500 Mg Tablet, 500 MG PO QDAY, TAB 06/06/18 Acetaminophen (ACETAMINOPHEN) 500 Mg Tablet, 500-1000 MG PO Q4-6H PRN for PAIN, TAB 06/06/18 Dextrin (FIBER) 350 Gm Powder, 350 GM PO QDAY 06/06/18 Vit B Cmplx & C#11/Ca/Dha/Q10 (BRAIN [id number] Q10 TABLET) 1 Each Tablet, 1 EACH PO QDAY 06/06/18 Bifidobacterium Infantis (ALIGN) 4 Mg Capsule, 4 MG PO QDAY, CAPSULE 06/06/18 Tadalafil (CIALIS) 5 Mg Tablet, 5 MG PO QDAY 10/15/17 Hydrochlorothiazide (HYDROCHLOROTHIAZIDE) 12.5 Mg Tablet, 1 TAB PO QDAY, TAB 10/15/17 Metformin Hcl (METFORMIN HCL) 500 Mg Tablet, 1 TAB PO BID, TAB 10/15/17 Amlodipine Besylate (AMLODIPINE BESYLATE) 10 Mg Tablet, 1 TAB PO QDAY, TAB 10/15/17 Cholecalciferol (Vitamin D3) (VITAMIN D3) 5,000 Unit Capsule, 5000 UNIT PO QDAY, CAPSULE 10/15/17 Discontinued Reported Medications Flaxseed Oil (FLAXSEED) 1,000 Mg Capsule, 1000 MG PO QDAY, CAPSULE 06/06/18 Omeprazole (OMEPRAZOLE) 20 Mg Tablet.dr, 20 MG PO BID, TAB 10/15/17 Ferrous Sulfate (FERROUS SULFATE) 325 Mg Tablet, 325 MG PO QDAY 10/15/17 Discontinued Scripts Budesonide (BUDESONIDE EC) 3 Mg Capdr...er, 3 CAPSULE PO QAM, #180 CALORIES 0 Refills Prov:RANJANA ZHU MD 06/17/18 Follow up Referrals: General Surgery - 01/02/19 @ Surgery, General with RANJANA ZHU MD You have a follow up appointment scheduled with Dr. Zhu on 01/02/19, at 4:15pm. Diet: Diabetic Activity: As Tolerated Special Instructions: Follow the provided steroid slow taper instructions and I'll discuss penitentiary therapy and the Prometheus panel results with you at your follow up appointment. RANJANA ZHU MD Dec 16, 2018 08:43
[2018-12-16] MEDS: ENOXAPARIN 40 MG/0.4ML SYR SC SCH (08:45)
[2018-12-16] MEDS: PANTOPRAZOLE SOD 40 MG TABEC PO SCH (08:45)
[2018-12-16] MEDS ORDERED: predniSONE 20 MG TAB PO SCH (09:00)
[2018-12-19] MEDS ORDERED: PRED20TA6 PO (08:07)
== END 2018-12-16 10:15 | disposition home or self-care (01) | DRG 387 ==
LOC: ER 04:08 → MED 05:48
PROVIDERS: ADMIT Surgery; ATTEND Surgery
DX: K50.012 Crohn's disease of small intestine with intestinal obstruction (principal); D64.9 Anemia, unspecified; K21.9 Gastro-esophageal reflux disease without esophagitis; I10 Essential (primary) hypertension; E11.9 Type 2 diabetes mellitus without complications; Z79.84 Long term (current) use of oral hypoglycemic drugs
CPT/HCPCS: 36415; 36416; 74022; 74177; 81001; 82040; 82247; 82310; 82374; 82435; 82565; 82947; 82948; 83690; 84075; 84132; 84155; 84295; 84450; 84460; 84520; 85025; 85651; 86140; 96361; 96374; 96375; 99284; C9113; J1650; J1720; J2405; J2930; J3490; J7030; J7512; Q9967

== ENCOUNTER → 2019-01-09 | Outpatient (CLI) | payer MEDICARE ==
[2018-04-30 12:17] VITALS: BMI 27.1
[~2019-01-09] MED LIST changes: +BARIUM SULFATE 450 ML SUSP ONE; +IOPAMIDOL 76% 100 ML INFUS BTL 100 ML ONE; +OMEP40CA48 PO
--- NOTE | 2019-01-09 11:40 | RADIOLOGY IMAGING REPORT ---
FACILITY: [facility] PATIENT NAME: Adrian Morales : 1950 MR: [id number] V: [id number] EXAM DATE: ORDERING PHYSICIAN: RANJANA ZHU TECHNOLOGIST: Location: [facility] Patient: Adrian Morales : 1950 Visit/Account:[id number] Date of Sevice: 01/09/2019 CT enterography ABDOMEN PELVIS W/ CON HISTORY: hx enteritis and possible crohns TECHNIQUE: Following administration of IV contrast contiguous axial images acquired through the abdom en/pelvis. The post contrast imaging was performed at 45 seconds and at 95 seconds Coronal and sagit domenico reformatting also performed.Dose Lowering Technique One of the following dose optimization techniques was utilized in the performance of this exam: Autom ated exposure control; adjustment of the mA and/or kV according to the patient's size; or use of an i terative reconstruction technique. Specific details can be referenced in the facility's radiology C T exam operational policy. CONTRAST: 75 mL Isovue-370 and 1350 mL of volumen as an oral contrast COMPARISON: December 14, 2018 FINDINGS: Visualized lung bases: Negative. Hepatobiliary: Cholelithiasis although no evidence of biliary ductal dilatation Spleen: Negative. Adrenals: Negative. Pancreas: Negative. Kidneys ureters or bladder: Subcentimeter cortical hypodensity interpolar region of the right kidney may represent a small cyst although is too small to characterize Genitalia: Negative. GI: There is a small amount of submucosal fat deposition in the terminal ileum which can be seen wit h chronic inflammation. Previously noted small bowel dilatation has resolved in the interim. There is no evidence of bowel wall thickening or obstruction at this time. Vessels/spaces/nodes: Mild atherosclerotic calcifications in the abdomen and pelvis. Bones/soft tissues: Spondylotic changes of the thoracolumbar spine Additional findings: None pertinent. IMPRESSION: Previously noted small bowel dilatation is no longer seen. There is a small amount of submucosal fat deposition in the terminal ileum which can be seen with chr onic inflammation Cholelithiasis although no evidence of biliary ductal dilatation Report Dictated By: Cailin Mitchell MD at 01/09/2019 11:20 AM Report E-Signed By: Cailin Mitchell MD at 01/09/2019 11:32 AM WSN:[email or web address]
== END ==
LOC: CT 01:08
PROVIDERS: ATTEND Surgery
DX: K52.9 Noninfective gastroenteritis and colitis, unspecified (principal); K50.90 Crohn's disease, unspecified, without complications; K80.20 Calculus of gallbladder without cholecystitis without obstruction
CPT/HCPCS: 74177; Q9967